=== PATIENT | female | born 1935 | race Caucasian/White ===

== ENCOUNTER 2018-07-25 13:19 | Inpatient (IN) | payer MEDICARE, OTHER ==
[2018-07-25 14:06] LABS: #Eosinphils 0.2 thou/uL (0.0-0.7); #Lymphocytes 0.9 thou/uL (1.20-3.40); #Monocytes 0.4 thou/uL (0.11-0.59); #Neutrophils 7.8 thou/uL (1.40-6.50); %Basophils 0.1 % (0.0-1.0); %Eosinophils 1.7 % (0.0-10.0); %Lymphocytes 9.2 % (21.0-51.0); %Monocytes 4.2 % (0.0-10.0); %Neutrophils 84.8 % (42.0-75.0); Hemoglobin 10.5 g/dL (12.0-16.0); Mean Corpuscular HGB CONC 31.1 g/dL (32.0-36.0); Mean Corpuscular Hemoglobin 28.4 pg (27.0-31.0); Mean Corpuscular Volume 91.3 fL (78.0-98.0); Mean Platelet Volume 7.5 fL (7.4-10.4); Platelet Count 283 thou/uL (130-400); RBC Distribution Width 14.1 % (11.5-14.5); White Blood Cell (WBC) Count 9.2 thou/uL (4.8-10.8)
[2018-07-25] MEDS ORDERED: HYDROcodone/Acetaminophen 5/325 mg Tablet ONE ×2 (14:22→17:46)
[2018-07-25 14:38] LABS: ALT (SGPT) 15 U/L (8-55); AST (SGOT) 15 U/L (5-34); Albumin 3.5 g/dL (3.4-4.8); Alkaline Phosphatase 68 U/L (40-150); Anion Gap 16 mmol/L (10-20); BUN (Urea Nitrogen) 22 mg/dL (9.8-20.1); Bilirubin, Total 0.2 mg/dL (0.2-1.2); Calc. Creatinine Clearance 0 mL/min (70-130); Calcium 9.5 mg/dL (7.8-10.44); Carbon Dioxide 23 mmol/L (23-31); Chloride 102 mmol/L (98-107); Estimated GFR-MDRD 48; Globulin 3.5 g/dL (2.4-3.5); Glucose 141 mg/dL (83-110); Potassium 4.5 mmol/L (3.5-5.1); Sodium 136 mmol/L (136-145)
--- NOTE | 2018-07-25 15:31 | ULT ---
RIGHT LOWER EXTREMITY VENOUS ULTRASOUND WITH DOPPLER: Date: 07/25/18 HISTORY: Evaluate for right lower extremity thrombus. Pain. COMPARISON: None. TECHNIQUE: Mohr scale, color flow, Doppler imaging, and spectral waveform analysis performed of the right lower extremity venous system. FINDINGS: There is compressibility, presence of flow in the common femoral vein and proximal femoral vein. Eval uation of the mid and distal femoral vein was limited. Flow was observed. Compressibility was not justin dent. The popliteal vein could not be assessed. There is compressibility and flow in the posterior ti bial vein. IMPRESSION: Limited evaluation due to body habitus. Nonvisualization of the popliteal vein. There is flow without compressibility of the mid to distal femoral vein. Possibility of a nonocclusive thrombus cannot be completely excluded. Clinical correlation is essential. POS: BUTCH
[2018-07-25] MEDS ORDERED: Ondansetron PF 4 MG/2 ML Vial IVP PRN ×2 (19:28→20:34)
[2018-07-25] MEDS ORDERED: Acetaminophen 325 MG TAB PO PRN ×2 (19:28→20:34)
[2018-07-25] MEDS ORDERED: Ondansetron ODT 4 MG TAB SL PRN (19:28)
[2018-07-25] MEDS ORDERED: Albuterol Sulfate 2.5 mg/3 ml Neb NEB PRN (20:34)
[2018-07-25] MEDS ORDERED: HYDROcodone/Acetaminophen 7.5/325 mg Tablet PO PRN (20:34)
[2018-07-25] MEDS ORDERED: Zolpidem Tartrate 5 MG TAB PO PRN (20:34)
[2018-07-25] MEDS ORDERED: Senokot S 8.6-50 MG TAB PO PRN (20:34)
[2018-07-25] MEDS ORDERED: Guaifenesin DM 100-10/5 ML UDCUP PO PRN (20:34)
[2018-07-25] MEDS ORDERED: Acetaminophen 650 MG Suppository PR PRN (20:34)
[2018-07-25] MEDS ORDERED: Dextrose 5% in Water 1,000 ML IV PRN (20:58)
[2018-07-25] MEDS ORDERED: Dextrose 50% Abboject 50 ML SYRINGE SLOW IVP PRN (20:58)
[2018-07-25] MEDS ORDERED: HumaLOG 300 UNITS/3 ML VIAL SC PRN ×2 (20:58)
[2018-07-25] MEDS ORDERED: Non-Formulary Item 1 EACH (Levemir Flexpen [Levemir Flexpen] 45 UNIT) SC SCH (21:00)
[2018-07-25] MEDS ORDERED: Famotidine 20 MG TAB PO SCH (21:00)
[2018-07-25] MEDS: Simvastatin 40 MG TAB PO SCH (21:50)
[2018-07-25] MEDS: Multivit, Therapeutic 1 TAB PO SCH (21:50)
[2018-07-25] MEDS: Furosemide 40 MG TAB PO SCH (21:50)
[2018-07-25] MEDS: HYDROcodone/Acetaminophen 7.5/325 mg Tablet PO PRN (21:50)
[2018-07-25] MEDS: Docusate 100 MG CAP PO SCH (21:50)
[2018-07-25] MEDS: Insulin Glargine 45 UNITS in Pre-Filled Syringe 1 EACH SC SCH (22:06)
--- NOTE | 2018-07-25 22:10 | HP ---
PRIMARY CARE PHYSICIAN: David Mathew MD CHIEF COMPLAINT: Right lower extremity pain. HISTORY OF PRESENT ILLNESS: This is an 82-year-old white female with a known history of severe lymphedema and previous cellulitis, last seen in May of this year at [facility] and admitted to the [facility], treated for edema and cellulitis with Lasix and Levaquin. The patient had improvement in her symptoms. She had apparently had a problem with her chair that elevates her feet at home for few days and so had her feet sitting down in a normal chair and has had felt like she had strained a muscle in her right upper thigh at that time. This was present during her whole hospitalization last time and when she went home, she says the pain has gotten worse and has been severe for the last week. Of note, the patient was transferred over to hospice care by her home health agency in May of this year. However, in the last week because she was still stable at her baseline, they transitioned her back to [facility] in the last week. The patient has had some chills, but no fevers. She has not noted if there has been any change in the chronic edematous changes of her lower extremities, but she cannot really see them well. In the emergency room, she was found to have redness around her ankle, feet, and in the distal part of her lower leg on the right side worse than the left. She was given a dose of vancomycin and admitted for cellulitis. PAST MEDICAL HISTORY: 1. Diabetes mellitus type 2, insulin dependent. 2. Chronic obstructive pulmonary disease on chronic home O2. 3. Undetermined type of congestive heart failure. 4. Obstructive sleep apnea, but has not worn her CPAP since she got home oxygen. 5. Hypothyroidism. 6. Hypertension. 7. Previous hemorrhoidal bleed. 8. Chronic lymphedema of the bilateral lower extremities with recurrent cellulitis. 9. Morbid obesity. PAST SURGICAL HISTORY: 1. Partial hysterectomy. 2. Bilateral cataract surgeries. 3. Left retina surgery. SOCIAL HISTORY: The patient is , lives with her who has dementia. She has previously been able to get around with a walker, though uncertain how much she is able to move recently. No tobacco, alcohol, or illicit drug use. FAMILY HISTORY: Unknown secondary to patient being adopted. ALLERGIES: 1. FISH CONTAINING PRODUCTS. 2. IODINATED CONTRAST, NEEDS PRETREATMENT BEFORE CARDIAC CATHETERIZATIONS. 3. LATEX. 4. PENICILLIN. 5. SHELLFISH. 6. SULFA ANTIBIOTICS. 7. TOMATOES. CURRENT MEDICATIONS: The patient is not certain of her home medications. Looking at her discharge list from her [facility] stay looks like she is on; 1. Levemir 52 units in the morning and 45 units at bedtime. 2. Aspirin 325 mg daily. 3. Zetia 10 mg daily. 4. Albuterol nebs as needed. 5. Furosemide 40 mg twice a day. 6. Potassium chloride 20 mEq daily. 7. Levothyroxine 100 mcg daily. 8. Cozaar 50 mg daily. 9. MiraLAX 1 pack daily. 10. Simvastatin 40 mg at bedtime. 11. Symbicort 160/4.5 two puffs twice a day. 12. Colace 100 mg twice a day. 13. Protonix 40 mg daily. REVIEW OF SYSTEMS: CONSTITUTIONAL: See HPI. EYES: No double vision or blurred vision. ENT: No congestion or sore throat. She has had some chronic nasal drainage. CARDIOVASCULAR: No chest pain. No palpitations or racing heart. She has had previous chest pain, but nothing recent. PULMONARY: She has chronic cough and shortness of breath, requiring home oxygen. This is not changed recently. GASTROINTESTINAL: No abdominal pain. She does have some nausea recently, but no vomiting. No diarrhea or constipation. No recent hemorrhoidal bleeds. Last time was in the hospital. GENITOURINARY: No dysuria or hematuria. MUSCULOSKELETAL: She has significant pain in the right anterior thigh. SKIN: See HPI. NEUROLOGIC: No numbness, tingling, or focal weakness. PHYSICAL EXAMINATION: VITAL SIGNS: Blood pressure 124/91, pulse 70, respirations 17, O2 saturation 99% on 3 L, and temperature 98.0. GENERAL: This is a well-developed, morbidly obese white female, in no acute distress. HEENT: Pupils equal, round, and reactive to light. Oropharynx clear without lesions, erythema, or exudate. NECK: Supple. No lymphadenopathy. No thyroid nodules or enlargement. HEART: Regular rate and rhythm. No murmurs, rubs, or gallops. LUNGS: Clear to auscultation bilaterally. No wheezes, crackles, or rhonchi. ABDOMEN: Soft, obese, nontender to palpation. Normoactive bowel sounds. No hepatosplenomegaly or other masses. EXTREMITIES: The patient has severe lymphedema to bilateral lower extremities with chronic thickening and lumpy changes to bilateral lower shins around her ankles and onto her feet with some lichenification of these areas. There is starting to be some redness in between the lichenified lumps on the ankles and on the feet, especially on the right lower extremity. There is actually some blistering. There are clear blisters without any evidence of purulence, but she does have some bright red areas in the midst of the lichenified area. There is no spreading cellulitis that is moving up the extremity and no rash over the anterior right thigh, where she is having the pain. She does have some tenderness to palpation in this area, but no masses. No warmth. Comparing the current lower extremity changes to what the pictures taken from May of this year at [facility], she has had significant worsening of the swelling and the bright red color is new. SKIN: See extremities above. NEUROLOGIC: The patient is able to move all extremities equally. She does have a left facial droop, which she states is from a sunstroke she had as a child and then she has always had less movement of the left side of her face. No recent changes. PSYCHIATRIC: Alert and oriented x3. Normal mood and affect. LABORATORY DATA: CBC with a white blood cell count 9.2, hemoglobin is 10.5, hematocrit 33.8, and platelet count 287. Complete metabolic panel is notable only for BUN of 22, glucose of 141. The rest was normal. Lactic acid was negative. Troponin was negative. Brain natriuretic peptide was normal. There was a vascular ultrasound done in the emergency room that showed no visualized clot in her right lower extremity deep veins. However, they were unable to compress the mid and distal femoral vein due to her obesity. There was limited ability to assess this. There was flow observed however in these portions of the vein, unable to completely rule out nonocclusive thrombus, but there was no obvious clot visualized. ASSESSMENT: 1. Bilateral lower extremity cellulitis, worse on the right than the left. We will continue vancomycin started in the emergency room at the pharmacy dose and we will observe for improvement in the redness of her lower extremities. 2. Right thigh pain. She is at high risk for deep venous thrombosis. However, she does also have a history of recurrently bleeding hemorrhoids and some anemia, and has had to have transfusions before by her report. I only would want to make certain if she has a deep venous thrombosis before actually starting her on full-dose therapy. We will go ahead and get D-dimer if this is negative along with nonvisualization of any obvious clot, then we can safely rule it out. If the D-dimer is positive, we may need to reassess with a repeat ultrasound. 3. Diabetes mellitus type 2, insulin dependent. We will resume patient's home insulin, put her on a controlled carbohydrate diet. 4. History of congestive heart failure with worsening lower extremity edema. I suspect the patient's edema is actually more lymphedema and poor venous return. Especially given her normal brain natriuretic peptide, however, I will get an echocardiogram and we will continue patient's oral Lasix for now. If she has any creatinine bumps, then we may need to decrease the Lasix treatment. If she has worsening of swelling and her creatinine is stable, she may need short course of IV therapy. 5. Gastrointestinal prophylaxis. Put patient on Protonix daily. 6. Deep venous thrombosis prophylaxis. We will put patient on prophylactic dose of Lovenox only right now. 7. Code status. I did discuss this with the patient. She is a do not attempt resuscitation. Should she be incapacitated, her son would be her medical decision maker, his name is Kenneth Zhou Junior. Job ID: [id number]
[2018-07-25 22:45] VITALS: BMI 74.2
[2018-07-25] MEDS: Ondansetron ODT 4 MG TAB PO PRN (23:23)
[2018-07-26] MEDS ORDERED: Gabapentin 300 MG CAP PO SCH (04:30)
[2018-07-26] MEDS ORDERED: Nystatin Powder 15 GM BOT TOP PRN (04:41)
[2018-07-26] MEDS: Vancomycin HCl 1 GM in Premix Bag 1 BAG IVPB SCH ×2 (04:44→16:32)
[2018-07-26] MEDS ORDERED: Nystatin Powder 15 GM BOT TOP SCH ×2 (04:45→09:00)
[2018-07-26] MEDS: Levothyroxine Sodium 100 MCG TAB PO SCH (05:27)
[2018-07-26] MEDS: HYDROcodone/Acetaminophen 7.5/325 mg Tablet PO PRN ×4 (07:03→21:41)
[2018-07-26] MEDS: Mometasone/Formoterol 120 PUFF INHALER INH SCH ×2 (07:13→18:23)
[2018-07-26] MEDS: Losartan 25 MG TAB PO SCH (08:59)
[2018-07-26] MEDS: Docusate 100 MG CAP PO SCH ×2 (08:59→20:50)
[2018-07-26] MEDS: Furosemide 40 MG TAB PO SCH ×2 (09:00→20:50)
[2018-07-26] MEDS: Potassium Chloride 20 MEQ TAB PO SCH ×2 (09:00→16:32)
[2018-07-26] MEDS: Ezetimibe 10 MG TAB PO SCH (09:00)
[2018-07-26] MEDS: Enoxaparin Sodium 40 MG/0.4 ML SYRINGE SC SCH (09:00)
[2018-07-26] MEDS ORDERED: INSULIN DETEMIR SC SCH (09:00)
[2018-07-26] MEDS ORDERED: Insulin Glargine 65 UNITS in Pre-Filled Syringe 1 EACH SC SCH (09:00)
[2018-07-26] MEDS: Aspirin 325 MG TAB PO SCH (09:00)
[2018-07-26] MEDS: Insulin Glargine 52 UNITS in Pre-Filled Syringe 1 EACH SC SCH (09:01)
[2018-07-26] MEDS: Polyethylene Glycol 3350 17 GM Packet PO SCH (09:05)
[2018-07-26 09:43] LABS: #Eosinphils 0.1 thou/uL (0.0-0.7); #Lymphocytes 0.4 thou/uL (1.20-3.40); #Monocytes 0.3 thou/uL (0.11-0.59); #Neutrophils 7.9 thou/uL (1.40-6.50); %Basophils 0.1 % (0.0-1.0); %Eosinophils 1.1 % (0.0-10.0); %Lymphocytes 4.1 % (21.0-51.0); %Monocytes 3.8 % (0.0-10.0); Hemoglobin 9.8 g/dL (12.0-16.0); Mean Corpuscular HGB CONC 31.2 g/dL (32.0-36.0); Mean Corpuscular Hemoglobin 28.5 pg (27.0-31.0); Mean Corpuscular Volume 91.4 fL (78.0-98.0); Mean Platelet Volume 7.7 fL (7.4-10.4); Platelet Count 286 thou/uL (130-400); Red Blood Cell (RBC) Count 3.42 mill/uL (4.20-5.40); White Blood Cell (WBC) Count 8.7 thou/uL (4.8-10.8)
[2018-07-26 09:58] LABS: Anion Gap 9 mmol/L (10-20); BUN (Urea Nitrogen) 18 mg/dL (9.8-20.1); Calc. Creatinine Clearance 149 mL/min (70-130); Calcium 9.3 mg/dL (7.8-10.44); Carbon Dioxide 34 mmol/L (23-31); Chloride 96 mmol/L (98-107); Estimated GFR-MDRD 60; Glucose 123 mg/dL (83-110); Potassium 4.3 mmol/L (3.5-5.1); Sodium 135 mmol/L (136-145)
--- NOTE | 2018-07-26 12:07 | PDOC.PN ---
- Subjective Encounter Start Date: 07/26/18 Encounter Start Time: 08:45 -: old records requested/rev Patient seen and examined. No new complaints. No overnight events - Objective Resuscitation Status - Order Detail: 07/25/18 20:27 Resuscitation Status Routine Resuscitation Status: DNAR: NO Resuscitation Discussed with: Patient RACHAEL Reviewed: Yes Vital Signs & Weight: Vital Signs (12 hours) Temp Pulse Resp BP Pulse Ox 07/26/18 11:33 97.7 F 64 16 140/65 99 07/26/18 08:00 95 07/26/18 07:13 88 22 H 99 07/26/18 07:00 97.6 F 68 18 165/73 H 95 Weight Weight 432 lb 3 oz Result Diagrams: 07/26/18 09:00 07/26/18 09:00 Additional Labs: Accuchecks 07/26/18 07/25/18 04:57 22:06 POC Glucose 126 H 132 H Phys Exam - Physical Examination Constitutional: NAD HEENT: PERRLA, moist MMs, sclera anicteric Neck: no JVD, supple Respiratory: no wheezing, no rales, no rhonchi Cardiovascular: RRR, no significant murmur, no rub Gastrointestinal: soft, non-tender, no distention, positive bowel sounds morbid obesity+ chronic lymphoedema Neurological: non-focal Lymphatic: no nodes Psychiatric: normal affect Skin: no rash, normal turgor Dx/Plan (1) Cellulitis of both lower extremities Code(s): L03.115 - CELLULITIS OF RIGHT LOWER LIMB; L03.116 - CELLULITIS OF LEFT LOWER LIMB Status: Acute (2) Anemia, normocytic normochromic Code(s): D64.9 - ANEMIA, UNSPECIFIED Status: Chronic (3) COPD (chronic obstructive pulmonary disease) Status: Chronic (4) Chronic respiratory failure with hypoxia, on home O2 therapy Code(s): J96.11 - CHRONIC RESPIRATORY FAILURE WITH HYPOXIA; Z99.81 - DEPENDENCE ON SUPPLEMENTAL OXYGEN Status: Chronic (5) Diabetes type 2, controlled Code(s): E11.9 - TYPE 2 DIABETES MELLITUS WITHOUT COMPLICATIONS Status: Chronic (6) Dyslipidemia Code(s): E78.5 - HYPERLIPIDEMIA, UNSPECIFIED Status: Chronic (7) GERD (gastroesophageal reflux disease) Code(s): K21.9 - GASTRO-ESOPHAGEAL REFLUX DISEASE WITHOUT ESOPHAGITIS Status: Chronic (8) HTN (hypertension) Code(s): I10 - ESSENTIAL (PRIMARY) HYPERTENSION Status: Chronic Qualifiers: (9) Hypothyroidism Code(s): E03.9 - HYPOTHYROIDISM, UNSPECIFIED Status: Chronic (10) Lymphedema Code(s): I89.0 - LYMPHEDEMA, NOT ELSEWHERE CLASSIFIED Status: Chronic (11) Morbid obesity with BMI of 70 and over, adult Code(s): E66.01 - MORBID (SEVERE) OBESITY DUE TO EXCESS CALORIES; Z68.45 - BODY MASS INDEX (BMI) 70 OR GREATER, ADULT Status: Chronic (12) MARISA (obstructive sleep apnea) Code(s): G47.33 - OBSTRUCTIVE SLEEP APNEA (ADULT) (PEDIATRIC) Status: Chronic - Plan cont current plan of care, continue antibiotics * medication reviewed as below * symptomatic treatment * continue current IV antibiotic * wound care * will need placement * discussed with family. Review of Systems - Review of Systems ENT: negative: Ear Pain, Ear Discharge, Nose Pain, Nose Discharge, Nose Congestion, Mouth Pain, Mouth Swelling, Throat Pain, Throat Swelling, Other Respiratory: negative: Cough, Dry, Shortness of Breath, Hemoptysis, SOB with Excertion, Pleuritic Pain, Sputum, Wheezing Cardiovascular: negative: chest pain, palpitations, orthopnea, paroxysmal nocturnal dyspnea, edema, light headedness, other Gastrointestinal: negative: Nausea, Vomiting, Abdominal Pain, Diarrhea, Constipation, Melena, Hematochezia, Other Genitourinary: negative: Dysuria, Frequency, Incontinence, Hematuria, Retention , Other Musculoskeletal: Leg Pain. negative: Neck Pain, Shoulder Pain, Arm Pain, Back Pain, Hand Pain, Foot Pain, Other - Medications/Allergies Allergies/Adverse Reactions: Allergies Allergy/AdvReac Type Severity Reaction Status Date / Time Fish Containing Products Allergy Severe Anaphylaxis Verified 07/25/18 22:47 iodine Allergy Severe Anaphylaxis Verified 07/25/18 22:47 shellfish derived Allergy Severe Anaphylaxis Verified 07/25/18 22:47 Latex, Natural Rubber Allergy Rash Verified 07/25/18 22:47 Penicillins Allergy Hives Verified 07/25/18 22:47 Sulfa (Sulfonamide Allergy Anaphylaxis Verified 07/25/18 22:47 Antibiotics) tomato [Tomato] Allergy Hives Verified 07/25/18 22:47 Medications: Current Medications Acetaminophen (Tylenol) 650 mg PO Q4H PRN PRN Reason: Headache/Fever/Mild Pain (1-3) Acetaminophen (Tylenol) 650 mg NC Q4H PRN PRN Reason: Headache/Fever/Mild Pain (1-3) Hydrocodone Bitart/Acetaminophen (Parlin 7.5/325) 1 tab PO Q4H PRN PRN Reason: Moderate Pain (4-6) Last Admin: 07/26/18 01:24 Dose: 1 tab Hydrocodone Bitart/Acetaminophen (Parlin 7.5/325) 2 tab PO Q4H PRN PRN Reason: Severe Pain (7-10) Last Admin: 07/26/18 07:03 Dose: 2 tab Albuterol Sulfate (Ventolin) 2.5 mg NEB Q6HR PRN PRN Reason: SOB &/or Wheezing Last Admin: 07/26/18 00:00 Dose: 2.5 mg Aspirin (Aspirin) 325 mg PO DAILY [facility] Last Admin: 07/26/18 09:00 Dose: 325 mg Dextrose/Water (Dextrose 50%) 25 gm SLOW IVP PRN PRN PRN Reason: Hypoglycemia Docusate Sodium (Colace) 100 mg PO BID [facility] Last Admin: 07/26/18 08:59 Dose: 100 mg Ezetimibe (Zetia) 10 mg PO DAILY [facility] Last Admin: 07/26/18 09:00 Dose: 10 mg Enoxaparin Sodium (Lovenox) 40 mg SC 0900 [facility] Last Admin: 07/26/18 09:00 Dose: 40 mg Furosemide (Lasix) 40 mg PO BID [facility] Last Admin: 07/26/18 09:00 Dose: 40 mg Glucagon (Glucagon) 1 mg IM PRN PRN PRN Reason: Hypoglycemia Guaifenesin/Dextromethorphan (Robitussin Dm) 15 ml PO Q4H PRN PRN Reason: Cough Vancomycin HCl 1 gm/ Device 200 mls @ 200 mls/hr IVPB 0400,1600 [facility] Last Admin: 07/26/18 04:44 Dose: 200 mls Insulin Glargine 45 units/ (Miscellaneous Medication) 0.45 mls @ 0 mls/hr SC HS [facility] Last Admin: 07/25/18 22:06 Dose: Not Given Insulin Glargine 52 units/ (Miscellaneous Medication) 0.52 mls @ 0 mls/hr SC QAM [facility] Last Admin: 07/26/18 09:01 Dose: 0.52 mls Dextrose/Water (D5w) 1,000 mls @ 0 mls/hr IV .Q0M PRN PRN Reason: Hypoglycemia Insulin Human Lispro (Humalog) 0 units SC .AGGRESSIVE SLIDING PRN PRN Reason: Aggressive Correctional Scale Insulin Human Lispro (Humalog) 0 units SC .BEDTIME SLIDING SC PRN PRN Reason: Bedtime Correctional Scale Levothyroxine Sodium (Synthroid) 100 mcg PO 0600 [facility] Last Admin: 07/26/18 05:27 Dose: 100 mcg Losartan Potassium (Cozaar) 50 mg PO DAILY [facility] Last Admin: 07/26/18 08:59 Dose: 50 mg Miscellaneous Medication (Pharmacy To Dose) 1 each IVPB ONE PRN PRN Reason: DOSING Stop: 08/24/18 20:54 Mometasone Furoate/Formoterol Fumar (Dulera 200 Mcg/5 Mcg Inhaler) 2 puff INH BID-RT [facility] Last Admin: 07/26/18 07:13 Dose: 2 puff Multivitamins (Theragran) 1 tab PO [facility] Last Admin: 07/25/18 21:50 Dose: 1 tab Nystatin (Mycostatin Powder) 0 gm TOP BID PRN PRN Reason: Rash/Topical Irritation Last Admin: 07/26/18 09:01 Dose: 1 applic Ondansetron HCl (Zofran Odt) 4 mg PO Q6H PRN PRN Reason: Nausea/Vomiting Last Admin: 07/25/18 23:23 Dose: 4 mg Ondansetron HCl (Zofran) 4 mg IVP Q6H PRN PRN Reason: Nausea/Vomiting Pantoprazole Sodium (Protonix) 40 mg PO 2100 [facility] Last Admin: 07/25/18 21:50 Dose: 40 mg Polyethylene Glycol (Miralax) 17 gm PO DAILY [facility] Last Admin: 07/26/18 09:05 Dose: 17 gm Potassium Chloride (K-Dur) 20 meq PO BID-WM [facility] Last Admin: 07/26/18 09:00 Dose: 20 meq Senna/Docusate Sodium (Senokot S) 2 tab PO BID PRN PRN Reason: Constipation Simvastatin (Zocor) 40 mg PO HS [facility] Last Admin: 07/25/18 21:50 Dose: 40 mg Zolpidem Tartrate (Ambien) 5 mg PO HS PRN PRN Reason: Insomnia Last Admin: 07/26/18 02:55 Dose: 5 mg
[2018-07-26] MEDS: Ondansetron ODT 4 MG TAB PO PRN (12:24)
[2018-07-26] MEDS ORDERED: Ketorolac Tromethamine 30 MG/ML VIAL IVP PRN (16:07)
[2018-07-26] MEDS: Insulin Glargine 45 UNITS in Pre-Filled Syringe 1 EACH SC SCH (20:50)
[2018-07-26] MEDS: Simvastatin 40 MG TAB PO SCH (20:51)
[2018-07-26] MEDS: Multivit, Therapeutic 1 TAB PO SCH (20:51)
[2018-07-27 05:21] LABS: Vancomycin, Trough 14.2 ug/mL
[2018-07-27] MEDS: Levothyroxine Sodium 100 MCG TAB PO SCH (05:46)
[2018-07-27] MEDS: Vancomycin HCl 1 GM in Premix Bag 1 BAG IVPB SCH ×3 (06:18→17:42)
[2018-07-27] MEDS: Mometasone/Formoterol 120 PUFF INHALER INH SCH ×2 (06:53→19:16)
[2018-07-27] MEDS: Enoxaparin Sodium 40 MG/0.4 ML SYRINGE SC SCH (09:05)
[2018-07-27] MEDS: Polyethylene Glycol 3350 17 GM Packet PO SCH (09:05)
[2018-07-27] MEDS: Potassium Chloride 20 MEQ TAB PO SCH ×2 (09:05→17:39)
[2018-07-27] MEDS: Losartan 25 MG TAB PO SCH (09:06)
[2018-07-27] MEDS: Docusate 100 MG CAP PO SCH ×2 (09:06→20:27)
[2018-07-27] MEDS: Ezetimibe 10 MG TAB PO SCH (09:06)
[2018-07-27] MEDS: Aspirin 325 MG TAB PO SCH (09:06)
[2018-07-27] MEDS: Insulin Glargine 52 UNITS in Pre-Filled Syringe 1 EACH SC SCH (09:06)
[2018-07-27] MEDS: Furosemide 40 MG TAB PO SCH ×2 (09:06→20:27)
[2018-07-27] MEDS: HYDROcodone/Acetaminophen 7.5/325 mg Tablet PO PRN ×3 (10:51→20:26)
--- NOTE | 2018-07-27 11:13 | PDOC.PN ---
- Subjective Encounter Start Date: 07/27/18 Encounter Start Time: 09:50 Patient seen and examined. No new complaints. No overnight events she has dyspnea - Objective Resuscitation Status - Order Detail: 07/25/18 20:27 Resuscitation Status Routine Resuscitation Status: DNAR: NO Resuscitation Discussed with: Patient RACHAEL Reviewed: Yes Vital Signs & Weight: Vital Signs (12 hours) Temp Pulse Resp BP Pulse Ox 07/27/18 08:00 99.2 F 76 20 141/69 H 100 07/27/18 06:54 98 07/27/18 06:53 78 16 98 Weight Weight 432 lb 3 oz I&O: 07/26/18 07/27/18 07/28/18 06:59 06:59 06:59 Intake Total 1710 Balance 1710 Result Diagrams: 07/26/18 09:00 07/26/18 09:00 Additional Labs: Accuchecks 07/27/18 07/26/18 07/26/18 04:45 19:53 16:20 POC Glucose 77 109 94 07/26/18 07/26/18 11:34 04:57 POC Glucose 134 H 126 H Phys Exam - Physical Examination Constitutional: NAD HEENT: PERRLA, moist MMs, sclera anicteric Neck: no JVD, supple Respiratory: no wheezing, no rales, no rhonchi distant sound Cardiovascular: RRR, no significant murmur, no rub Gastrointestinal: soft, non-tender, no distention, positive bowel sounds obesity lymphoedema+ Lymphatic: no nodes Psychiatric: normal affect Skin: no rash, normal turgor Dx/Plan (1) Cellulitis of both lower extremities Code(s): L03.115 - CELLULITIS OF RIGHT LOWER LIMB; L03.116 - CELLULITIS OF LEFT LOWER LIMB Status: Acute (2) Anemia, normocytic normochromic Code(s): D64.9 - ANEMIA, UNSPECIFIED Status: Chronic (3) COPD (chronic obstructive pulmonary disease) Status: Chronic (4) Chronic respiratory failure with hypoxia, on home O2 therapy Code(s): J96.11 - CHRONIC RESPIRATORY FAILURE WITH HYPOXIA; Z99.81 - DEPENDENCE ON SUPPLEMENTAL OXYGEN Status: Chronic (5) Diabetes type 2, controlled Code(s): E11.9 - TYPE 2 DIABETES MELLITUS WITHOUT COMPLICATIONS Status: Chronic (6) Dyslipidemia Code(s): E78.5 - HYPERLIPIDEMIA, UNSPECIFIED Status: Chronic (7) GERD (gastroesophageal reflux disease) Code(s): K21.9 - GASTRO-ESOPHAGEAL REFLUX DISEASE WITHOUT ESOPHAGITIS Status: Chronic (8) HTN (hypertension) Code(s): I10 - ESSENTIAL (PRIMARY) HYPERTENSION Status: Chronic Qualifiers: (9) Hypothyroidism Code(s): E03.9 - HYPOTHYROIDISM, UNSPECIFIED Status: Chronic (10) Lymphedema Code(s): I89.0 - LYMPHEDEMA, NOT ELSEWHERE CLASSIFIED Status: Chronic (11) Morbid obesity with BMI of 70 and over, adult Code(s): E66.01 - MORBID (SEVERE) OBESITY DUE TO EXCESS CALORIES; Z68.45 - BODY MASS INDEX (BMI) 70 OR GREATER, ADULT Status: Chronic (12) MARISA (obstructive sleep apnea) Code(s): G47.33 - OBSTRUCTIVE SLEEP APNEA (ADULT) (PEDIATRIC) Status: Chronic - Plan cont current plan of care, plan discussed w/ family, continue antibiotics, PT/OT , social media marketing manager, respiratory therapy * continue vancomycin * medication reviewed as below * symptomatic treatment * continue duoneb therapy. Review of Systems - Review of Systems ENT: negative: Ear Pain, Ear Discharge, Nose Pain, Nose Discharge, Nose Congestion, Mouth Pain, Mouth Swelling, Throat Pain, Throat Swelling, Other Respiratory: Shortness of Breath. negative: Cough, Dry, Hemoptysis, SOB with Excertion, Pleuritic Pain, Sputum, Wheezing Cardiovascular: negative: chest pain, palpitations, orthopnea, paroxysmal nocturnal dyspnea, edema, light headedness, other Gastrointestinal: negative: Nausea, Vomiting, Abdominal Pain, Diarrhea, Constipation, Melena, Hematochezia, Other Genitourinary: negative: Dysuria, Frequency, Incontinence, Hematuria, Retention , Other Musculoskeletal: negative: Neck Pain, Shoulder Pain, Arm Pain, Back Pain, Hand Pain, Leg Pain, Foot Pain, Other Skin: negative: Rash, Lesions, Addy, Bruising, Other - Medications/Allergies Allergies/Adverse Reactions: Allergies Allergy/AdvReac Type Severity Reaction Status Date / Time Fish Containing Products Allergy Severe Anaphylaxis Verified 07/25/18 22:47 iodine Allergy Severe Anaphylaxis Verified 07/25/18 22:47 shellfish derived Allergy Severe Anaphylaxis Verified 07/25/18 22:47 Latex, Natural Rubber Allergy Rash Verified 07/25/18 22:47 Penicillins Allergy Hives Verified 07/25/18 22:47 Sulfa (Sulfonamide Allergy Anaphylaxis Verified 07/25/18 22:47 Antibiotics) tomato [Tomato] Allergy Hives Verified 07/25/18 22:47 Medications: Current Medications Acetaminophen (Tylenol) 650 mg PO Q4H PRN PRN Reason: Headache/Fever/Mild Pain (1-3) Acetaminophen (Tylenol) 650 mg [place] Q4H PRN PRN Reason: Headache/Fever/Mild Pain (1-3) Hydrocodone Bitart/Acetaminophen ([place] 7.5/325) 1 tab PO Q4H PRN PRN Reason: Moderate Pain (4-6) Last Admin: 07/26/18 01:24 Dose: 1 tab Hydrocodone Bitart/Acetaminophen ([place] 7.5/325) 2 tab PO Q4H PRN PRN Reason: Severe Pain (7-10) Last Admin: 07/27/18 10:51 Dose: 2 tab Albuterol Sulfate (Ventolin) 2.5 mg NEB Q6HR PRN PRN Reason: SOB &/or Wheezing Last Admin: 07/26/18 00:00 Dose: 2.5 mg Aspirin (Aspirin) 325 mg PO DAILY [facility] Last Admin: 07/27/18 09:06 Dose: 325 mg Dextrose/Water (Dextrose 50%) 25 gm SLOW IVP PRN PRN PRN Reason: Hypoglycemia Docusate Sodium (Colace) 100 mg PO BID [facility] Last Admin: 07/27/18 09:06 Dose: 100 mg Ezetimibe (Zetia) 10 mg PO DAILY [facility] Last Admin: 07/27/18 09:06 Dose: 10 mg Enoxaparin Sodium (Lovenox) 40 mg SC 0900 [facility] Last Admin: 07/27/18 09:05 Dose: 40 mg Furosemide (Lasix) 40 mg PO BID [facility] Last Admin: 07/27/18 09:06 Dose: 40 mg Glucagon (Glucagon) 1 mg IM PRN PRN PRN Reason: Hypoglycemia Guaifenesin/Dextromethorphan (Robitussin Dm) 15 ml PO Q4H PRN PRN Reason: Cough Insulin Glargine 45 units/ (Miscellaneous Medication) 0.45 mls @ 0 mls/hr SC HS [facility] Last Admin: 07/26/18 20:50 Dose: Not Given Insulin Glargine 52 units/ (Miscellaneous Medication) 0.52 mls @ 0 mls/hr SC QAM [facility] Last Admin: 07/27/18 09:06 Dose: 0.52 mls Dextrose/Water (D5w) 1,000 mls @ 0 mls/hr IV .Q0M PRN PRN Reason: Hypoglycemia Vancomycin HCl 1 gm/ Device 200 mls @ 200 mls/hr IVPB 0600,1800 [facility] Last Admin: 07/27/18 06:18 Dose: 200 mls Insulin Human Lispro (Humalog) 0 units SC .AGGRESSIVE SLIDING PRN PRN Reason: Aggressive Correctional Scale Insulin Human Lispro (Humalog) 0 units SC .BEDTIME SLIDING SC PRN PRN Reason: Bedtime Correctional Scale Ketorolac Tromethamine (Toradol) 30 mg IVP Q6H PRN PRN Reason: Pain Stop: 07/31/18 16:08 Levothyroxine Sodium (Synthroid) 100 mcg PO 0600 [facility] Last Admin: 07/27/18 05:46 Dose: 100 mcg Losartan Potassium (Cozaar) 50 mg PO DAILY [facility] Last Admin: 07/27/18 09:06 Dose: 50 mg Miscellaneous Medication (Pharmacy To Dose) 1 each IVPB ONE PRN PRN Reason: DOSING Stop: 08/24/18 20:54 Mometasone Furoate/Formoterol Fumar (Dulera 200 Mcg/5 Mcg Inhaler) 2 puff INH BID-RT [facility] Last Admin: 07/27/18 06:53 Dose: 2 puff Multivitamins (Theragran) 1 tab PO HS [facility] Last Admin: 07/26/18 20:51 Dose: 1 tab Nystatin (Mycostatin Powder) 0 gm TOP BID PRN PRN Reason: Rash/Topical Irritation Last Admin: 07/26/18 09:01 Dose: 1 applic Ondansetron HCl (Zofran Odt) 4 mg PO Q6H PRN PRN Reason: Nausea/Vomiting Last Admin: 07/26/18 12:24 Dose: 4 mg Ondansetron HCl (Zofran) 4 mg IVP Q6H PRN PRN Reason: Nausea/Vomiting Pantoprazole Sodium (Protonix) 40 mg PO 2100 [facility] Last Admin: 07/26/18 20:51 Dose: 40 mg Polyethylene Glycol (Miralax) 17 gm PO DAILY [facility] Last Admin: 07/27/18 09:05 Dose: 17 gm Potassium Chloride (K-Dur) 20 meq PO BID-WM [facility] Last Admin: 07/27/18 09:05 Dose: 20 meq Senna/Docusate Sodium (Senokot S) 2 tab PO BID PRN PRN Reason: Constipation Simvastatin (Zocor) 40 mg PO HS [facility] Last Admin: 07/26/18 20:51 Dose: 40 mg Zolpidem Tartrate (Ambien) 5 mg PO HS PRN PRN Reason: Insomnia Last Admin: 07/26/18 02:55 Dose: 5 mg
[2018-07-27] MEDS: Multivit, Therapeutic 1 TAB PO SCH (20:27)
[2018-07-27] MEDS: Simvastatin 40 MG TAB PO SCH (20:27)
[2018-07-27] MEDS: Insulin Glargine 45 UNITS in Pre-Filled Syringe 1 EACH SC SCH (20:32)
[2018-07-28] MEDS: HYDROcodone/Acetaminophen 7.5/325 mg Tablet PO PRN ×2 (02:45→14:55)
[2018-07-28] MEDS: Vancomycin HCl 1 GM in Premix Bag 1 BAG IVPB SCH ×2 (06:12→18:08)
[2018-07-28] MEDS: Levothyroxine Sodium 100 MCG TAB PO SCH (06:12)
[2018-07-28] MEDS: Mometasone/Formoterol 120 PUFF INHALER INH SCH ×2 (06:26→18:45)
[2018-07-28] MEDS: Polyethylene Glycol 3350 17 GM Packet PO SCH (09:35)
[2018-07-28] MEDS: Aspirin 325 MG TAB PO SCH (09:35)
[2018-07-28] MEDS: Docusate 100 MG CAP PO SCH ×2 (09:35→22:21)
[2018-07-28] MEDS: Losartan 25 MG TAB PO SCH (09:35)
[2018-07-28] MEDS: Furosemide 40 MG TAB PO SCH ×2 (09:35→14:48)
[2018-07-28] MEDS: Ezetimibe 10 MG TAB PO SCH (09:35)
[2018-07-28] MEDS: Potassium Chloride 20 MEQ TAB PO SCH ×2 (09:35→18:07)
[2018-07-28] MEDS: Enoxaparin Sodium 40 MG/0.4 ML SYRINGE SC SCH (09:35)
[2018-07-28] MEDS: Insulin Glargine 52 UNITS in Pre-Filled Syringe 1 EACH SC SCH (09:36)
--- NOTE | 2018-07-28 10:06 | PDOC.PN ---
- Subjective Encounter Start Date: 07/28/18 Encounter Start Time: 09:10 Patient seen and examined. No new complaints. No overnight events - Objective Resuscitation Status - Order Detail: 07/25/18 20:27 Resuscitation Status Routine Resuscitation Status: DNAR: NO Resuscitation Discussed with: Patient RACHAEL Reviewed: Yes Vital Signs & Weight: Vital Signs (12 hours) Temp Pulse Resp BP Pulse Ox 07/28/18 07:41 97.5 F L 62 19 131/70 97 07/28/18 06:29 98 07/28/18 06:26 63 16 98 Weight Weight 432 lb 3 oz I&O: 07/27/18 07/28/18 07/29/18 06:59 06:59 06:59 Intake Total 1710 720 Balance 1710 720 Result Diagrams: 07/26/18 09:00 07/26/18 09:00 Additional Labs: Accuchecks 07/28/18 07/27/18 07/27/18 04:58 20:17 16:21 POC Glucose 118 H 129 H 139 H 07/27/18 11:15 POC Glucose 148 H Phys Exam - Physical Examination Constitutional: NAD HEENT: PERRLA, moist MMs, sclera anicteric Neck: no JVD, supple Respiratory: no wheezing, no rales, no rhonchi Cardiovascular: RRR, no significant murmur, no rub Gastrointestinal: soft, non-tender, no distention, positive bowel sounds lymphoedema Neurological: non-focal, normal sensation Lymphatic: no nodes Psychiatric: normal affect Skin: no rash, normal turgor Dx/Plan (1) Cellulitis of both lower extremities Code(s): L03.115 - CELLULITIS OF RIGHT LOWER LIMB; L03.116 - CELLULITIS OF LEFT LOWER LIMB Status: Acute (2) Anemia, normocytic normochromic Code(s): D64.9 - ANEMIA, UNSPECIFIED Status: Chronic (3) COPD (chronic obstructive pulmonary disease) Status: Chronic (4) Chronic respiratory failure with hypoxia, on home O2 therapy Code(s): J96.11 - CHRONIC RESPIRATORY FAILURE WITH HYPOXIA; Z99.81 - DEPENDENCE ON SUPPLEMENTAL OXYGEN Status: Chronic (5) Diabetes type 2, controlled Code(s): E11.9 - TYPE 2 DIABETES MELLITUS WITHOUT COMPLICATIONS Status: Chronic (6) Dyslipidemia Code(s): E78.5 - HYPERLIPIDEMIA, UNSPECIFIED Status: Chronic (7) GERD (gastroesophageal reflux disease) Code(s): K21.9 - GASTRO-ESOPHAGEAL REFLUX DISEASE WITHOUT ESOPHAGITIS Status: Chronic (8) HTN (hypertension) Code(s): I10 - ESSENTIAL (PRIMARY) HYPERTENSION Status: Chronic Qualifiers: (9) Hypothyroidism Code(s): E03.9 - HYPOTHYROIDISM, UNSPECIFIED Status: Chronic (10) Lymphedema Code(s): I89.0 - LYMPHEDEMA, NOT ELSEWHERE CLASSIFIED Status: Chronic (11) Morbid obesity with BMI of 70 and over, adult Code(s): E66.01 - MORBID (SEVERE) OBESITY DUE TO EXCESS CALORIES; Z68.45 - BODY MASS INDEX (BMI) 70 OR GREATER, ADULT Status: Chronic (12) MARISA (obstructive sleep apnea) Code(s): G47.33 - OBSTRUCTIVE SLEEP APNEA (ADULT) (PEDIATRIC) Status: Chronic - Plan cont current plan of care, plan discussed w/ family, continue antibiotics, PT/OT , social worker aide * medication reviewed as below * symptomatic treatment * continue empiric antibiotics * wound care * await placement. Review of Systems - Review of Systems ENT: negative: Ear Pain, Ear Discharge, Nose Pain, Nose Discharge, Nose Congestion, Mouth Pain, Mouth Swelling, Throat Pain, Throat Swelling, Other Respiratory: negative: Cough, Dry, Shortness of Breath, Hemoptysis, SOB with Excertion, Pleuritic Pain, Sputum, Wheezing Cardiovascular: negative: chest pain, palpitations, orthopnea, paroxysmal nocturnal dyspnea, edema, light headedness, other Gastrointestinal: negative: Nausea, Vomiting, Abdominal Pain, Diarrhea, Constipation, Melena, Hematochezia, Other Genitourinary: negative: Dysuria, Frequency, Incontinence, Hematuria, Retention , Other - Medications/Allergies Allergies/Adverse Reactions: Allergies Allergy/AdvReac Type Severity Reaction Status Date / Time Fish Containing Products Allergy Severe Anaphylaxis Verified 07/25/18 22:47 iodine Allergy Severe Anaphylaxis Verified 07/25/18 22:47 shellfish derived Allergy Severe Anaphylaxis Verified 07/25/18 22:47 Latex, Natural Rubber Allergy Rash Verified 07/25/18 22:47 Penicillins Allergy Hives Verified 07/25/18 22:47 Sulfa (Sulfonamide Allergy Anaphylaxis Verified 07/25/18 22:47 Antibiotics) tomato [Tomato] Allergy Hives Verified 07/25/18 22:47 Medications: Current Medications Acetaminophen (Tylenol) 650 mg PO Q4H PRN PRN Reason: Headache/Fever/Mild Pain (1-3) Acetaminophen (Tylenol) 650 mg [place] Q4H PRN PRN Reason: Headache/Fever/Mild Pain (1-3) Hydrocodone Bitart/Acetaminophen ([place] 7.5/325) 1 tab PO Q4H PRN PRN Reason: Moderate Pain (4-6) Last Admin: 07/26/18 01:24 Dose: 1 tab Hydrocodone Bitart/Acetaminophen ([place] 7.5/325) 2 tab PO Q4H PRN PRN Reason: Severe Pain (7-10) Last Admin: 07/28/18 02:45 Dose: 2 tab Albuterol Sulfate (Ventolin) 2.5 mg NEB Q6HR PRN PRN Reason: SOB &/or Wheezing Last Admin: 07/26/18 00:00 Dose: 2.5 mg Aspirin (Aspirin) 325 mg PO DAILY [facility] Last Admin: 07/28/18 09:35 Dose: 325 mg Dextrose/Water (Dextrose 50%) 25 gm SLOW IVP PRN PRN PRN Reason: Hypoglycemia Docusate Sodium (Colace) 100 mg PO BID [facility] Last Admin: 07/28/18 09:35 Dose: 100 mg Ezetimibe (Zetia) 10 mg PO DAILY [facility] Last Admin: 07/28/18 09:35 Dose: 10 mg Enoxaparin Sodium (Lovenox) 40 mg SC 0900 [facility] Last Admin: 07/28/18 09:35 Dose: 40 mg Furosemide (Lasix) 40 mg PO 0900,1400 [facility] Last Admin: 07/28/18 09:35 Dose: 40 mg Glucagon (Glucagon) 1 mg IM PRN PRN PRN Reason: Hypoglycemia Guaifenesin/Dextromethorphan (Robitussin Dm) 15 ml PO Q4H PRN PRN Reason: Cough Insulin Glargine 45 units/ (Miscellaneous Medication) 0.45 mls @ 0 mls/hr SC HS [facility] Last Admin: 07/27/18 20:32 Dose: 0.45 mls Insulin Glargine 52 units/ (Miscellaneous Medication) 0.52 mls @ 0 mls/hr SC QAM [facility] Last Admin: 07/28/18 09:36 Dose: 0.52 mls Dextrose/Water (D5w) 1,000 mls @ 0 mls/hr IV .Q0M PRN PRN Reason: Hypoglycemia Vancomycin HCl 1 gm/ Device 200 mls @ 200 mls/hr IVPB 0600,1800 [facility] Last Admin: 07/28/18 06:12 Dose: 200 mls Insulin Human Lispro (Humalog) 0 units SC .AGGRESSIVE SLIDING PRN PRN Reason: Aggressive Correctional Scale Insulin Human Lispro (Humalog) 0 units SC .BEDTIME SLIDING SC PRN PRN Reason: Bedtime Correctional Scale Ketorolac Tromethamine (Toradol) 30 mg IVP Q6H PRN PRN Reason: Pain Stop: 07/31/18 16:08 Levothyroxine Sodium (Synthroid) 100 mcg PO 0600 [facility] Last Admin: 07/28/18 06:12 Dose: 100 mcg Losartan Potassium (Cozaar) 50 mg PO DAILY [facility] Last Admin: 07/28/18 09:35 Dose: 50 mg Miscellaneous Medication (Pharmacy To Dose) 1 each IVPB ONE PRN PRN Reason: DOSING Stop: 08/24/18 20:54 Mometasone Furoate/Formoterol Fumar (Dulera 200 Mcg/5 Mcg Inhaler) 2 puff INH BID-RT [facility] Last Admin: 07/28/18 06:26 Dose: 2 puff Multivitamins (Theragran) 1 tab PO HS [facility] Last Admin: 07/27/18 20:27 Dose: 1 tab Nystatin (Mycostatin Powder) 0 gm TOP BID PRN PRN Reason: Rash/Topical Irritation Last Admin: 07/26/18 09:01 Dose: 1 applic Ondansetron HCl (Zofran Odt) 4 mg PO Q6H PRN PRN Reason: Nausea/Vomiting Last Admin: 07/26/18 12:24 Dose: 4 mg Ondansetron HCl (Zofran) 4 mg IVP Q6H PRN PRN Reason: Nausea/Vomiting Pantoprazole Sodium (Protonix) 40 mg PO 2100 [facility] Last Admin: 07/27/18 20:27 Dose: 40 mg Polyethylene Glycol (Miralax) 17 gm PO DAILY [facility] Last Admin: 07/28/18 09:35 Dose: 17 gm Potassium Chloride (K-Dur) 20 meq PO BID-WM [facility] Last Admin: 07/28/18 09:35 Dose: 20 meq Senna/Docusate Sodium (Senokot S) 2 tab PO BID PRN PRN Reason: Constipation Simvastatin (Zocor) 40 mg PO HS [facility] Last Admin: 07/27/18 20:27 Dose: 40 mg Zolpidem Tartrate (Ambien) 5 mg PO HS PRN PRN Reason: Insomnia Last Admin: 07/26/18 02:55 Dose: 5 mg
[2018-07-28 17:36] LABS: Vancomycin, Trough 19.5 ug/mL
[2018-07-28] MEDS: Insulin Glargine 45 UNITS in Pre-Filled Syringe 1 EACH SC SCH (22:17)
[2018-07-28] MEDS: Simvastatin 40 MG TAB PO SCH (22:21)
[2018-07-28] MEDS: Multivit, Therapeutic 1 TAB PO SCH (22:21)
[2018-07-29] MEDS: Vancomycin HCl 1 GM in Premix Bag 1 BAG IVPB SCH ×2 (06:30→18:07)
[2018-07-29] MEDS: Levothyroxine Sodium 100 MCG TAB PO SCH (06:30)
[2018-07-29] MEDS: Mometasone/Formoterol 120 PUFF INHALER INH SCH ×2 (06:54→18:50)
[2018-07-29] MEDS: HYDROcodone/Acetaminophen 7.5/325 mg Tablet PO PRN (06:57)
[2018-07-29] MEDS: Potassium Chloride 20 MEQ TAB PO SCH ×2 (09:44→18:07)
[2018-07-29] MEDS: Furosemide 40 MG TAB PO SCH ×2 (09:44→15:42)
[2018-07-29] MEDS: Insulin Glargine 52 UNITS in Pre-Filled Syringe 1 EACH SC SCH (09:44)
[2018-07-29] MEDS: Polyethylene Glycol 3350 17 GM Packet PO SCH (09:44)
[2018-07-29] MEDS: Ezetimibe 10 MG TAB PO SCH (09:44)
[2018-07-29] MEDS: Aspirin 325 MG TAB PO SCH (09:44)
[2018-07-29] MEDS: Docusate 100 MG CAP PO SCH (09:44)
[2018-07-29] MEDS: Enoxaparin Sodium 40 MG/0.4 ML SYRINGE SC SCH (09:45)
[2018-07-29] MEDS: Losartan 25 MG TAB PO SCH (09:48)
--- NOTE | 2018-07-29 10:22 | PDOC.PN ---
- Subjective Encounter Start Date: 07/29/18 Encounter Start Time: 09:10 Patient seen and examined. No new complaints. No overnight events - Objective Resuscitation Status - Order Detail: 07/25/18 20:27 Resuscitation Status Routine Resuscitation Status: DNAR: NO Resuscitation Discussed with: Patient RACHAEL Reviewed: Yes Vital Signs & Weight: Vital Signs (12 hours) Temp Pulse Resp BP Pulse Ox 07/29/18 07:15 97.8 F 66 16 146/68 H 96 07/29/18 06:56 93 L 07/29/18 06:54 82 16 93 L Weight Weight 432 lb 3 oz I&O: 07/28/18 07/29/18 07/30/18 06:59 06:59 06:59 Intake Total 720 600 Balance 720 600 Result Diagrams: 07/26/18 09:00 07/26/18 09:00 Additional Labs: Accuchecks 07/29/18 07/28/18 07/28/18 04:47 20:25 16:18 POC Glucose 87 140 H 116 H 07/28/18 11:32 POC Glucose 148 H Phys Exam - Physical Examination Constitutional: NAD HEENT: PERRLA, moist MMs, sclera anicteric Neck: no JVD, supple Respiratory: no wheezing, no rales, no rhonchi Cardiovascular: RRR, no significant murmur, no rub Gastrointestinal: soft, non-tender, no distention, positive bowel sounds Musculoskeletal: no edema, pulses present Neurological: non-focal, normal sensation, moves all 4 limbs Lymphatic: no nodes Psychiatric: normal affect, A&O x 3 Skin: no rash, normal turgor Dx/Plan (1) Cellulitis of both lower extremities Code(s): L03.115 - CELLULITIS OF RIGHT LOWER LIMB; L03.116 - CELLULITIS OF LEFT LOWER LIMB Status: Acute (2) Anemia, normocytic normochromic Code(s): D64.9 - ANEMIA, UNSPECIFIED Status: Chronic (3) COPD (chronic obstructive pulmonary disease) Status: Chronic (4) Chronic respiratory failure with hypoxia, on home O2 therapy Code(s): J96.11 - CHRONIC RESPIRATORY FAILURE WITH HYPOXIA; Z99.81 - DEPENDENCE ON SUPPLEMENTAL OXYGEN Status: Chronic (5) Diabetes type 2, controlled Code(s): E11.9 - TYPE 2 DIABETES MELLITUS WITHOUT COMPLICATIONS Status: Chronic (6) Dyslipidemia Code(s): E78.5 - HYPERLIPIDEMIA, UNSPECIFIED Status: Chronic (7) GERD (gastroesophageal reflux disease) Code(s): K21.9 - GASTRO-ESOPHAGEAL REFLUX DISEASE WITHOUT ESOPHAGITIS Status: Chronic (8) HTN (hypertension) Code(s): I10 - ESSENTIAL (PRIMARY) HYPERTENSION Status: Chronic Qualifiers: (9) Hypothyroidism Code(s): E03.9 - HYPOTHYROIDISM, UNSPECIFIED Status: Chronic (10) Lymphedema Code(s): I89.0 - LYMPHEDEMA, NOT ELSEWHERE CLASSIFIED Status: Chronic (11) Morbid obesity with BMI of 70 and over, adult Code(s): E66.01 - MORBID (SEVERE) OBESITY DUE TO EXCESS CALORIES; Z68.45 - BODY MASS INDEX (BMI) 70 OR GREATER, ADULT Status: Chronic (12) MARISA (obstructive sleep apnea) Code(s): G47.33 - OBSTRUCTIVE SLEEP APNEA (ADULT) (PEDIATRIC) Status: Chronic - Plan cont current plan of care, continue antibiotics, PT/OT, social services analyst * medication reviewed as below * symptomatic treatment * continue IV antibiotics * await placement. Review of Systems - Review of Systems ENT: negative: Ear Pain, Ear Discharge, Nose Pain, Nose Discharge, Nose Congestion, Mouth Pain, Mouth Swelling, Throat Pain, Throat Swelling, Other Respiratory: negative: Cough, Dry, Shortness of Breath, Hemoptysis, SOB with Excertion, Pleuritic Pain, Sputum, Wheezing Cardiovascular: negative: chest pain, palpitations, orthopnea, paroxysmal nocturnal dyspnea, edema, light headedness, other Gastrointestinal: negative: Nausea, Vomiting, Abdominal Pain, Diarrhea, Constipation, Melena, Hematochezia, Other Genitourinary: negative: Dysuria, Frequency, Incontinence, Hematuria, Retention , Other Musculoskeletal: negative: Neck Pain, Shoulder Pain, Arm Pain, Back Pain, Hand Pain, Leg Pain, Foot Pain, Other Skin: negative: Rash, Lesions, Addy, Bruising, Other - Medications/Allergies Allergies/Adverse Reactions: Allergies Allergy/AdvReac Type Severity Reaction Status Date / Time Fish Containing Products Allergy Severe Anaphylaxis Verified 07/25/18 22:47 iodine Allergy Severe Anaphylaxis Verified 07/25/18 22:47 shellfish derived Allergy Severe Anaphylaxis Verified 07/25/18 22:47 Latex, Natural Rubber Allergy Rash Verified 07/25/18 22:47 Penicillins Allergy Hives Verified 07/25/18 22:47 Sulfa (Sulfonamide Allergy Anaphylaxis Verified 07/25/18 22:47 Antibiotics) tomato [Tomato] Allergy Hives Verified 07/25/18 22:47 Medications: Current Medications Acetaminophen (Tylenol) 650 mg PO Q4H PRN PRN Reason: Headache/Fever/Mild Pain (1-3) Acetaminophen (Tylenol) 650 mg [place] Q4H PRN PRN Reason: Headache/Fever/Mild Pain (1-3) Hydrocodone Bitart/Acetaminophen ([place] 7.5/325) 1 tab PO Q4H PRN PRN Reason: Moderate Pain (4-6) Last Admin: 07/26/18 01:24 Dose: 1 tab Hydrocodone Bitart/Acetaminophen ([place] 7.5/325) 2 tab PO Q4H PRN PRN Reason: Severe Pain (7-10) Last Admin: 07/29/18 06:57 Dose: 2 tab Albuterol Sulfate (Ventolin) 2.5 mg NEB Q6HR PRN PRN Reason: SOB &/or Wheezing Last Admin: 07/26/18 00:00 Dose: 2.5 mg Aspirin (Aspirin) 325 mg PO DAILY [facility] Last Admin: 07/29/18 09:44 Dose: 325 mg Dextrose/Water (Dextrose 50%) 25 gm SLOW IVP PRN PRN PRN Reason: Hypoglycemia Docusate Sodium (Colace) 100 mg PO BID [facility] Last Admin: 07/29/18 09:44 Dose: 100 mg Ezetimibe (Zetia) 10 mg PO DAILY [facility] Last Admin: 07/29/18 09:44 Dose: 10 mg Enoxaparin Sodium (Lovenox) 40 mg SC 0900 [facility] Last Admin: 07/29/18 09:45 Dose: 40 mg Furosemide (Lasix) 40 mg PO 0900,1400 [facility] Last Admin: 07/29/18 09:44 Dose: 40 mg Glucagon (Glucagon) 1 mg IM PRN PRN PRN Reason: Hypoglycemia Guaifenesin/Dextromethorphan (Robitussin Dm) 15 ml PO Q4H PRN PRN Reason: Cough Insulin Glargine 45 units/ (Miscellaneous Medication) 0.45 mls @ 0 mls/hr SC HS [facility] Last Admin: 07/28/18 22:17 Dose: 0.45 mls Insulin Glargine 52 units/ (Miscellaneous Medication) 0.52 mls @ 0 mls/hr SC QAM [facility] Last Admin: 07/29/18 09:44 Dose: 0.52 mls Dextrose/Water (D5w) 1,000 mls @ 0 mls/hr IV .Q0M PRN PRN Reason: Hypoglycemia Vancomycin HCl 1 gm/ Device 200 mls @ 200 mls/hr IVPB 0600,1800 [facility] Last Admin: 07/29/18 06:30 Dose: 200 mls Insulin Human Lispro (Humalog) 0 units SC .AGGRESSIVE SLIDING PRN PRN Reason: Aggressive Correctional Scale Insulin Human Lispro (Humalog) 0 units SC .BEDTIME SLIDING SC PRN PRN Reason: Bedtime Correctional Scale Ketorolac Tromethamine (Toradol) 30 mg IVP Q6H PRN PRN Reason: Pain Stop: 07/31/18 16:08 Levothyroxine Sodium (Synthroid) 100 mcg PO 0600 [facility] Last Admin: 07/29/18 06:30 Dose: 100 mcg Losartan Potassium (Cozaar) 50 mg PO DAILY [facility] Last Admin: 07/29/18 09:48 Dose: 50 mg Miscellaneous Medication (Pharmacy To Dose) 1 each IVPB ONE PRN PRN Reason: DOSING Stop: 08/24/18 20:54 Mometasone Furoate/Formoterol Fumar (Dulera 200 Mcg/5 Mcg Inhaler) 2 puff INH BID-RT [facility] Last Admin: 07/29/18 06:54 Dose: 2 puff Multivitamins (Theragran) 1 tab PO HS [facility] Last Admin: 07/28/18 22:21 Dose: 1 tab Nystatin (Mycostatin Powder) 0 gm TOP BID PRN PRN Reason: Rash/Topical Irritation Last Admin: 07/26/18 09:01 Dose: 1 applic Ondansetron HCl (Zofran Odt) 4 mg PO Q6H PRN PRN Reason: Nausea/Vomiting Last Admin: 07/26/18 12:24 Dose: 4 mg Ondansetron HCl (Zofran) 4 mg IVP Q6H PRN PRN Reason: Nausea/Vomiting Pantoprazole Sodium (Protonix) 40 mg PO 2100 [facility] Last Admin: 07/28/18 22:20 Dose: 40 mg Polyethylene Glycol (Miralax) 17 gm PO DAILY [facility] Last Admin: 07/29/18 09:44 Dose: 17 gm Potassium Chloride (K-Dur) 20 meq PO BID-WM [facility] Last Admin: 07/29/18 09:44 Dose: 20 meq Senna/Docusate Sodium (Senokot S) 2 tab PO BID PRN PRN Reason: Constipation Simvastatin (Zocor) 40 mg PO HS [facility] Last Admin: 07/28/18 22:21 Dose: 40 mg Zolpidem Tartrate (Ambien) 5 mg PO HS PRN PRN Reason: Insomnia Last Admin: 07/26/18 02:55 Dose: 5 mg
--- NOTE | 2018-07-29 15:31 | DIS ---
DATE OF ADMISSION: 07/25/2018 DATE OF DISCHARGE: 07/29/2018 PRIMARY CARE PHYSICIAN: David Mathew MD DISCHARGE DISPOSITION: [facility]. PRIMARY DISCHARGE DIAGNOSIS: Bilateral lower extremity cellulitis. SECONDARY DISCHARGE DIAGNOSES: 1. Morbid obesity with BMI 74. 2. Obstructive sleep apnea. 3. Lymphoedema. 4. Hypothyroidism. 5. Hypertension. 6. Gastroesophageal reflux disease. 7. Dyslipidemia. 8. Diabetes type 2. 9. Chronic obstructive pulmonary disease. 10. Chronic respiratory failure, on home oxygen therapy. 11. Normocytic-normochromic anemia. PRIMARY PROCEDURE/OPERATION: None. RADIOLOGICAL INVESTIGATION: Ultrasound negative for DVT. Echocardiography showed normal EF. SIGNIFICANT LABORATORY DATA: WBC 8.7, hemoglobin 9.8, platelets 286. D-dimer 0.87. Sodium 135, potassium 4.3, creatinine 0.90, calcium 9.3. CRP negative. BNP normal. Cardiac enzyme negative. Blood culture negative. DISCHARGE MEDICATION: 1. Lorazepam 0.5 mg p.o. q.4 hourly p.r.n. 2. Prochlorperazine 10 mg q.6 hourly p.r.n. 3. Robinul 1 mg p.o. q.8 hourly p.r.n. 4. Tylenol 650 mg q.4 hourly p.r.n. 5. Betamethasone topical application daily. 6. symbicort two puff inhalation b.i.d. 7. Colace 250 mg p.o. daily. 8. Lasix 80 mg daily. 9. Ketoconazole topical daily. 10. Levemir 45 units at bedtime, Levemir 52 units in the morning. 11. Lovastatin 10 mg at bedtime. 12. Prednisone 10 mg daily. 13. Ventolin inhaler q.6 hourly. 14. Cipro 500 mg p.o. b.i.d. 15. Doxycycline 100 mg b.i.d. 16. Aspirin 325 mg daily. 17. Synthroid 100 mcg p.o. daily. 18. Losartan 50 mg p.o. daily. 19. Multivitamin one tablet p.o. daily. 20. Florastor 250 mg daily. 21. Potassium chloride 20 mEq p.o. b.i.d. CONTRAINDICATION: None. CODE STATUS: DNR. INPATIENT CONSULTANTS: None. ALLERGIES: FISH, IODINE, SHELLFISH. DISCHARGE PLAN: Posthospital, the patient will follow up with primary care physician. HOSPITAL COURSE: An 82-year-old female with above-mentioned medical problem, who was admitted by Dr. Jalen Inman, please see his H and P for further details. This patient has morbid obesity, chronic venous insufficiency with venous lymphedema. The patient was having increasing erythema, swelling, tenderness over lower extremity, more on the right side and that is why patient was admitted to the hospital. She had ultrasound which was negative for DVT. Echocardiography was unremarkable. While in the hospital, she was treated with vancomycin. On discharge, we changed to Cipro and doxy. The patient home medication was continued while in the hospital. She remained hemodynamically stable. She has physical deconditioning and that is why the patient and family member requested to place her to long-term home. With the help of counter caser, we arranged long-term home. The patient has approval for long-term home from insurance perspective as well as a facility perspective. The patient is seen and examined at bedside today. Please see my progress note from today for further detail. Paperwork for discharge done and discharge medication reconciliation done. Total time spent on discharge day, 31 minutes. Job ID: [id number] MTDD
[2018-07-29 18:05] VITALS: BP 161/70; TEMP 98.2
--- NOTE | 2018-07-30 17:44 | EKG ---
Test Reason : Blood Pressure : / mmHG Vent. Rate : 060 BPM Atrial Rate : 060 BPM P-R Int : 152 ms QRS Dur : 086 ms QT Int : 454 ms P-R-T Axes : 085 030 042 degrees QTc Int : 454 ms Normal sinus rhythm Normal ECG Confirmed by CLARE VALENTIN [id number]), staff editor AMERICA ARMENTA ([id number]) on 07/30/2018 5:43:45 PM Referred By: Confirmed By:CLARE VALENTIN
== END 2018-07-29 19:30 | disposition swing bed (61) | DRG 603 ==
LOC: ERS 13:19 → T4-B 16:01
PROVIDERS: ADMIT Emergency Medicine; ATTEND Emergency Medicine
DX: L03.116 Cellulitis of left lower limb (principal); Z68.45 Body mass index [BMI] 70 or greater, adult; J96.11 Chronic respiratory failure with hypoxia; L03.115 Cellulitis of right lower limb; E66.01 Morbid (severe) obesity due to excess calories; E03.9 Hypothyroidism, unspecified; K21.9 Gastro-esophageal reflux disease without esophagitis; E78.5 Hyperlipidemia, unspecified; E11.9 Type 2 diabetes mellitus without complications; J44.9 Chronic obstructive pulmonary disease, unspecified; D64.9 Anemia, unspecified; I11.0 Hypertensive heart disease with heart failure; G47.33 Obstructive sleep apnea (adult) (pediatric); I50.9 Heart failure, unspecified; Z91.018 Allergy to other foods; Z91.041 Radiographic dye allergy status; Z99.81 Dependence on supplemental oxygen; Z91.013 Allergy to seafood; Z88.0 Allergy status to penicillin; Z88.2 Allergy status to sulfonamides; Z91.040 Latex allergy status; Z79.4 Long term (current) use of insulin; Z79.82 Long term (current) use of aspirin; Z79.899 Other long term (current) drug therapy; Z79.51 Long term (current) use of inhaled steroids
CPT/HCPCS: 36415; 36416; 80048; 80053; 80202; 83605; 83880; 84484; 85025; 85379; 87040; 90471; 90662; 93005; 93306; 94640; A4353; G0008; J1650; J1825; J3370; J7611; Q0162

== ENCOUNTER 2018-11-13 12:00 | Observation (INO) | payer MEDICARE, OTHER ==
[2018-11-13] MEDS ORDERED: Vancomycin HCl 1.5 GM in Sodium Chloride 0.9% 250 ML 300 ML IVPB SCH (12:45)
[2018-11-13 12:50] LABS: #Eosinphils 0.1 thou/uL (0.0-0.7); #Lymphocytes 0.8 thou/uL (1.20-3.40); #Monocytes 0.3 thou/uL (0.11-0.59); #Neutrophils 6.4 thou/uL (1.40-6.50); %Basophils 0.2 % (0.0-1.0); %Eosinophils 1.5 % (0.0-10.0); %Lymphocytes 10.6 % (21.0-51.0); %Neutrophils 83.7 % (42.0-75.0); Hemoglobin 12.5 g/dL (12.0-16.0); Mean Corpuscular HGB CONC 31.7 g/dL (32.0-36.0); Mean Corpuscular Hemoglobin 29.7 pg (27.0-31.0); Mean Corpuscular Volume 93.6 fL (78.0-98.0); Mean Platelet Volume 7.9 fL (7.4-10.4); Platelet Count 276 thou/uL (130-400); RBC Distribution Width 15.3 % (11.5-14.5); White Blood Cell (WBC) Count 7.6 thou/uL (4.8-10.8)
[2018-11-13 13:11] LABS: ALT (SGPT) 79 U/L (8-55); AST (SGOT) 114 U/L (5-34); Albumin 3.8 g/dL (3.4-4.8); Alkaline Phosphatase 103 U/L (40-150); Anion Gap 11 mmol/L (10-20); BUN (Urea Nitrogen) 9 mg/dL (9.8-20.1); Bilirubin, Total 0.5 mg/dL (0.2-1.2); Calc. Creatinine Clearance 0 mL/min (70-130); Carbon Dioxide 37 mmol/L (23-31); Chloride 95 mmol/L (98-107); Estimated GFR-MDRD 64; Globulin 3.5 g/dL (2.4-3.5); Glucose 205 mg/dL (83-110); Protein, Total 7.3 g/dL (6.0-8.3); Sodium 139 mmol/L (136-145)
[2018-11-13] MEDS ORDERED: Ondansetron ODT 4 MG TAB ONE ×2 (16:40→16:45)
[2018-11-13] MEDS ORDERED: Acetaminophen 650 MG Suppository PR PRN (19:17)
[2018-11-13] MEDS ORDERED: Ondansetron PF 4 MG/2 ML Vial IVP PRN (19:17)
[2018-11-13] MEDS ORDERED: Ondansetron ODT 4 MG TAB PO PRN (19:17)
[2018-11-13] MEDS ORDERED: Acetaminophen 325 MG TAB PO PRN (19:17)
[2018-11-13] MEDS ORDERED: Dextrose 5% in Water 1,000 ML IV PRN (19:21)
[2018-11-13] MEDS ORDERED: Dextrose 50% Abboject 50 ML SYRINGE SLOW IVP PRN (19:21)
[2018-11-13] MEDS ORDERED: HumaLOG 300 UNITS/3 ML VIAL SC PRN (19:21)
[2018-11-13] MEDS ORDERED: Lorazepam 0.5 MG TAB PO PRN (19:46)
[2018-11-13] MEDS ORDERED: Bisacodyl 10 MG SUPP PR PRN (19:46)
[2018-11-13] MEDS ORDERED: traMADol HCl 50 MG TAB PO PRN (19:52)
--- NOTE | 2018-11-13 20:29 | HP ---
CHIEF COMPLAINT: Nausea and vomiting. HISTORY OF PRESENT ILLNESS: Ms. Zhou is a pleasant 83-year-old woman, coming from [facility] with nausea and vomiting, believed to be associated with new antibiotics started for bilateral lower extremity cellulitis. The patient states there was notable improvement with erythema involving both legs and pain. However, she has been unable to tolerate the antibiotics. She reports having nausea and vomiting since last night. While in the emergency department, she noticed some epigastric discomfort. She denies having any fevers, chills, or sweats. Reports having long-standing issues with lymphedema involving both legs. She states she is having an "allergic reaction" to the antibiotics, but denies having any rash or hives. No tongue swelling, difficulty with breathing, or any other anaphylactic type reaction. The patient was advised switching to IV antibiotics and since this cannot be given at [facility], she was brought to the emergency department and referred for further treatment. Of note, the patient states she does suffer from chronic constipation and had her last bowel movement 3 days ago. She denies any abdominal bloating. She has been passing wind. Very concerned about receiving her regular medications for constipation. She does report a decreased appetite in the last 4 days and states she is not normally good about maintaining adequate hydration including drinking water. PAST MEDICAL HISTORY: 1. Diabetes mellitus, type 2. 2. Generalized weakness, bed-bound. 3. Hypertension. 4. COPD. 5. Heart failure. PAST SURGICAL HISTORY: 1. Vaginal prolapse repair and cyst excision. 2. Partial hysterectomy. 3. Bilateral cataract surgery. 4. Retinal surgery to the left eye. SOCIAL HISTORY: The patient lives at [facility]. No alcohol use, tobacco use, or illicit drug use. ALLERGIES: 1. IODINE. 2. LATEX GLOVES. 3. PENICILLIN. 4. SULFA. CURRENT MEDICATIONS: 1. Aspirin. 2. Citalopram. 3. Furosemide. 4. Levothyroxine. 5. Losartan. PHYSICAL EXAMINATION: GENERAL: The patient appears well developed, well nourished, and is in no acute distress. VITAL SIGNS: Temperature 98.1, pulse 80, respirations 18, blood pressure 144/70, O2 saturation 98% on 2 L of oxygen. The patient uses oxygen at home. HEENT: Normocephalic and atraumatic. Pupils are equal, round, reactive to light. Sclerae are without icterus. Oropharynx, lips notable for cheilitis. NECK: Supple. LUNGS: Clear to auscultation bilaterally. CARDIAC: Regular rate and rhythm. ABDOMEN: Morbidly obese, soft, with epigastric discomfort on palpation as well as discomfort in the right upper quadrant on palpation. Normoactive bowel sounds present. EXTREMITIES: Bilateral lower extremity lymphedema with erythema to the right lower leg anteriorly and this area is warm to touch. Wound to the left lateral ankle with wounds that appear to be draining green discharge. Unclear how this was compared to previously. The patient with significant pain involving the lower legs with slight touch, which she states it is chronic and made worse with recent infection. Bilateral pedal pulses are strong and equal. NEUROLOGIC: Alert and oriented x3. SKIN: Without jaundice. LABORATORY DATA: Full blood count unremarkable. Electrolytes normal. GFR 64, which appears to be at her baseline. Creatinine 0.85. AST elevated at 114 and ALT at 79. Total bilirubin 0.5. IMAGING DATA: None. IMPRESSION AND PLAN: Ms. Zhou is a pleasant 83-year-old woman, who is being referred for management of the following; 1. Nausea and vomiting. Per ED physician, believed to be a reaction or intolerance rather to her oral antibiotics. She has several allergies and was advised IV antibiotics, which could not be provided at [facility]. She has been started on IV vancomycin. At present, the patient remains afebrile and with no evidence of leukocytosis. She did report epigastric discomfort on exam and noted to have a mild transaminitis. We will add on lactic acid and lipase to rule out the possibility of pancreatitis. We will also obtain an abdominal ultrasound. We will give Zofran p.r.n. for nausea and vomiting. 2. Bilateral lower extremity cellulitis. We will continue IV antibiotics. Wound Care consulted. 3. Diabetes mellitus. We will initiate insulin sliding scale and monitor blood glucose. 4. Hypertension. We will resume home medications once reconciled. We will monitor blood pressure. 5. Hypothyroidism. We will resume Synthroid once reconciled. 6. Constipation. We will give senna twice daily and Dulcolax p.r. suppository p.r.n. for constipation. We will give very gentle hydration. 7. Code status, DNAR. Her surrogate decision maker is her , Kenneth Zhou. Job ID: [id number]
[2018-11-13] MEDS: Famotidine/PF 20 mg/2ml Vial SLOW IVP SCH (20:34)
[2018-11-13] MEDS: Sodium Chloride 0.9% 1,000 ML IV SCH (20:35)
--- NOTE | 2018-11-13 20:37 | RAD ---
Radiograph left foot 3 views: DATE: 11/13/2018 HISTORY: 83-year-old female with left foot pain and swelling. Rule out osteomyelitis. COMPARISON: None available FINDINGS: Diffuse soft tissue edema. Diffuse osteopenia. Innumerable tiny focal lucencies throughout all visual ized bone. No periostitis, fracture, or rajesh bone destruction. Os naviculare. No high-grade DJD. IMPRESSION: 1. Innumerable tiny lucencies throughout all visualized bones. This is probably due to diffuse severe osteoporosis. Multiple myeloma can also have this appearance, as well as osteomyelitis, although it would be unlikely for osteomyelitis to involve all bones of the foot. 2. Diffuse soft tissue edema.
[2018-11-13] MEDS: Senokot S 8.6-50 MG TAB PO SCH (20:39)
[2018-11-13 20:55] VITALS: BMI 60.8
[2018-11-13 20:57] LABS: Lactic Acid 0.8 mmol/L (0.5-2.2)
[2018-11-13] MEDS ORDERED: EMOLLIENT TOP SCH (21:00)
[2018-11-13] MEDS ORDERED: Triamcinolone 40 MG/ML VIAL TOP SCH (21:00)
[2018-11-14] MEDS: Levothyroxine Sodium 100 MCG TAB PO SCH (05:20)
[2018-11-14 06:53] LABS: #Basophils 0.1 thou/uL (0.0-0.2); #Eosinphils 0.2 thou/uL (0.0-0.7); #Lymphocytes 0.9 thou/uL (1.20-3.40); #Monocytes 0.3 thou/uL (0.11-0.59); %Basophils 0.9 % (0.0-1.0); %Eosinophils 4.4 % (0.0-10.0); %Lymphocytes 16.1 % (21.0-51.0); %Monocytes 5.6 % (0.0-10.0); Hemoglobin 11.2 g/dL (12.0-16.0); Mean Corpuscular HGB CONC 31.1 g/dL (32.0-36.0); Mean Corpuscular Hemoglobin 29.3 pg (27.0-31.0); Mean Corpuscular Volume 94.5 fL (78.0-98.0); Mean Platelet Volume 7.9 fL (7.4-10.4); Platelet Count 262 thou/uL (130-400); RBC Distribution Width 15.4 % (11.5-14.5); Red Blood Cell (RBC) Count 3.81 mill/uL (4.20-5.40); White Blood Cell (WBC) Count 5.5 thou/uL (4.8-10.8)
[2018-11-14 07:14] LABS: BUN (Urea Nitrogen) 10 mg/dL (9.8-20.1); Calc. Creatinine Clearance 123 mL/min (70-130); Calcium 9.7 mg/dL (7.8-10.44); Estimated GFR-MDRD 61; Glucose 95 mg/dL (83-110)
[2018-11-14 07:24] LABS: Anion Gap 14 mmol/L (10-20); Carbon Dioxide 33 mmol/L (23-31); Chloride 95 mmol/L (98-107); Potassium 3.3 mmol/L (3.5-5.1); Sodium 139 mmol/L (136-145)
--- NOTE | 2018-11-14 08:13 | ULT ---
ULTRASOUND ABDOMEN COMPLETE: DATE: 11/14/2018 HISTORY: 83-year-old female with epigastric and right upper quadrant abdominal pain with nausea and vomiting. FINDINGS: Gallbladder: Excessively distended. Sludge. Mural thickening mildly, 4 mm. Reportedly positive sonogr aphic Agrcia sign. Liver: Normal size. Left lobe normal echogenicity. Right lobe poorly visualized because of body habit us. Common duct caliber: 10 mm. Bilateral kidneys: No hydronephrosis. Right kidney poorly visualized. 3 cm right renal cyst. Pancreas: Nonspecific sonographic appearance. Abdominal aorta: Mid and distal portions completely Obscured by shadowing from bowel gas. Inferior vena cava: Poorly visualized. Spleen: No splenomegaly IMPRESSION: 1) Evidence for common bile duct obstruction.. 2) possibility of acute cholecystitis. 3) abdominal aorta not visualized.
[2018-11-14] MEDS: Senokot S 8.6-50 MG TAB PO SCH ×2 (09:06→20:32)
[2018-11-14] MEDS: Famotidine/PF 20 mg/2ml Vial SLOW IVP SCH ×2 (09:07→20:32)
[2018-11-14] MEDS: Aspirin 81 mg Enteric Coated Tablet PO SCH (09:07)
[2018-11-14] MEDS: Losartan 25 MG TAB PO SCH (09:07)
[2018-11-14] MEDS: Furosemide 80 MG TAB PO SCH (09:07)
[2018-11-14 09:19] LABS: ALT (SGPT) 61 U/L (8-55); AST (SGOT) 73 U/L (5-34); Albumin 3.3 g/dL (3.4-4.8); Alkaline Phosphatase 82 U/L (40-150); Bilirubin, Direct 0.2 mg/dL (0.1-0.3); Bilirubin, Total 0.5 mg/dL (0.2-1.2); Lipase 68 U/L (8-78); Protein, Total 6.3 g/dL (6.0-8.3)
--- NOTE | 2018-11-14 12:24 | PDOC.PN ---
- Subjective Encounter Start Date: 11/14/18 Encounter Start Time: 12:21 Subjective: Patient states she feels well, pain in her legs is well controlled. Denies -: any further n/v and abdominal discomfort has improved. No fevers or chills. -: Denies any worsening in SOB from baseline. No chest pain. No cough. Patient feels a new bed she was using at the [facility] is what perpetuated the lower leg swelling/erythema. States she is allergic to any kind of plastic. - Objective Resuscitation Status - Order Detail: 11/13/18 19:17 Resuscitation Status Routine Co-Sign Provider: Resuscitation Status: FULL: Full Resuscitation Vital Signs & Weight: Vital Signs (12 hours) Temp Pulse Resp BP Pulse Ox 11/14/18 11:56 98.4 F 67 20 116/54 L 95 11/14/18 07:57 98.6 F 69 20 119/71 94 L Weight Weight 354 lb 9.6 oz I&O: 11/13/18 11/14/18 11/15/18 06:59 06:59 06:59 Intake Total 720 Output Total 450 Balance 270 Result Diagrams: 11/14/18 06:19 11/14/18 06:19 Additional Labs: Accuchecks 11/14/18 11/14/18 11/13/18 11:17 05:12 19:57 POC Glucose 151 H 100 212 H Phys Exam - Physical Examination Constitutional: NAD Sleeping comfortably, easily woken, no acute distress HEENT: PERRLA lower lip notable for cheilitis, no ulcers/sores Neck: supple Respiratory: no wheezing, no rales, no rhonchi, clear to auscultation bilateral Cardiovascular: RRR, no significant murmur Gastrointestinal: soft, non-tender, positive bowel sounds obese Chronic lymphedema with nodular apperance, increased erythema of RLE, dressing in place to left heel pressure ulcer. No surround erythema/warmth. Neurological: non-focal Psychiatric: normal affect, A&O x 3 Dx/Plan (1) Pressure ulcer of left heel Code(s): L89.629 - PRESSURE ULCER OF LEFT HEEL, UNSPECIFIED STAGE Status: Acute Plan: Seen by wound care, dressing in place. Obtain wound culture results from [facility]. (2) Cellulitis of both lower extremities Code(s): L03.115 - CELLULITIS OF RIGHT LOWER LIMB; L03.116 - CELLULITIS OF LEFT LOWER LIMB Status: Acute Plan: Continue IV Antibiotics. Transition to PO once cleared for discharge. (3) Biliary obstruction Status: Acute Plan: N/V and abdominal pain resolved. Abdo US notable for distended GB with sludge and suspected biliary obstruction. CBD 10 mm. Patient showing no signs of obstruction clinically and AST/ALT improved. T. bili normal. Not a surgical candidate. Per discussion with Dr. Winston this morning, consult placed to Gastroenterology. Further imaging as per GI recommendations. (4) Hyperkalemia Code(s): E87.5 - HYPERKALEMIA Status: Acute Plan: Potassium replaced. Continue to monitor electrolytes. (5) HTN (hypertension) Code(s): I10 - ESSENTIAL (PRIMARY) HYPERTENSION Status: Chronic Qualifiers: Plan: Monitor BP. Continue antihypertensives. (6) Diabetes type 2, controlled Code(s): E11.9 - TYPE 2 DIABETES MELLITUS WITHOUT COMPLICATIONS Status: Chronic Plan: Continue ISS and monitor glucose, (7) Chronic respiratory failure with hypoxia, on home O2 therapy Code(s): J96.11 - CHRONIC RESPIRATORY FAILURE WITH HYPOXIA; Z99.81 - DEPENDENCE ON SUPPLEMENTAL OXYGEN Status: Chronic Plan: At baseline. Continue home O2, monitor O2 sats. - Plan cont current plan of care, continue antibiotics * .
[2018-11-14] MEDS: Sodium Chloride 0.9% 1,000 ML IV SCH (17:24)
--- NOTE | 2018-11-14 21:43 | CON ---
DATE OF CONSULTATION: 11/14/2018 REASON FOR CONSULTATION: Common bile duct dilation. HISTORY OF PRESENT ILLNESS: Ivone Zhou is an 83-year-old woman with morbid obesity. She was admitted to the hospital yesterday. She has developed a bilateral lower extremity cellulitis. She had recently been started on some oral antibiotics. The day before last, she started having acute nausea and vomiting as well as upper abdominal discomfort. She thought that perhaps this was a reaction to the antibiotics, so she was sent here for further evaluation and IV antibiotics. She was started on vancomycin. However, workup on arrival did show a new elevation in LFTs. Note, LFTs had always been normal before, but AST was up to 114, ALT 79, though total bilirubin was normal at 0.5, so an abdominal ultrasound was performed yesterday and this demonstrated a distended gallbladder with gallbladder sludge and also a distended common bile duct to 10 mm. The patient since then has been doing better. There has been no further nausea or vomiting. She says she has some twinges of occasional right upper quadrant discomfort, but only to deep palpation. Her LFTs have declined significantly with AST now down to 73, ALT down to 61. Note that she has seen my GI colleague, Dr. King, in the past. She had a colonoscopy in 2016. She evidently did not do very well with the sedation for the procedure and has been deemed a poor candidate for further operations and procedures. REVIEW OF SYSTEMS: Full review of systems including constitutional; head, eyes, ears, nose, and throat; GI; ; cardiovascular; respiratory; musculoskeletal; and neurologic systems is negative except as noted in the HPI. PAST MEDICAL HISTORY: 1. Diabetes type 2. 2. Morbid obesity. 3. Debility, bedbound. 4. Hypertension. 5. COPD. 6. Heart failure. 7. Vaginal prolapse repair and cyst excision. 8. Partial hysterectomy. 9. Bilateral cataract surgery. 10. Retinal surgery to the left eye. SOCIAL HISTORY: The patient lives at [facility]. No smoking, alcohol, or drug use. ALLERGIES: IODINE, LATEX GLOVE, PENICILLIN, SULFA. OUTPATIENT MEDICATIONS: 1. Aspirin. 2. Citalopram. 3. Furosemide. 4. Levothyroxine. 5. Losartan. FAMILY HISTORY: Noncontributory. PHYSICAL EXAMINATION: VITAL SIGNS: Temperature 98.4, pulse 67, blood pressure 116/54, and 95% oxygen saturation on 2 L nasal cannula. GENERAL: Morbidly obese woman, lying in bed comfortably, in no acute distress, nontoxic. SKIN: No jaundice. EXTREMITIES: I did not examine her left lower extremity wound, but this is well documented elsewhere. She has some bilateral lower extremity erythema. HEENT: Eyes, no scleral icterus. Extraocular movements intact. ENT, mucous membranes are moist. No oral lesions. She is on nasal cannula oxygen. NECK: Large neck. No thyromegaly. Nontender to palpation. HEART: Distant heart sounds. LUNGS: Distant breath sounds. ABDOMEN: Bowel sounds present. Soft, nontender to deep palpation throughout. No guarding or rebound tenderness. The abdomen is quite obese. EXTREMITIES: Bilateral lower extremity edema with patchy erythema. NEURO: Cranial nerves 2 through 12 intact bilaterally. LABORATORY STUDIES: Hemoglobin 11.2, WBC 5.5, platelets 262. Total bilirubin 0.5, alkaline phosphatase 82, AST 73, ALT 61, albumin 3.3, lipase only 68. Note that yesterday transaminases were elevated to a greater degree with AST 114, ALT 79. BUN is 10, creatinine 0.88. IMAGING STUDIES: Abdominal ultrasound from yesterday demonstrated a positive Garcia sign, distended gallbladder with biliary sludge, and common bile duct dilation to 10-mm in diameter. ASSESSMENT AND PLAN: 1. Nausea and vomiting, improved. 2. Elevated liver function tests, improving. 3. Dilated common bile duct. 4. Biliary sludge. The patient's presentation seems most consistent with symptomatic gallbladder disease. I suspect she probably passed some stone or sludge out of her common bile duct and that was the cause of her symptoms and spike in LFTs. I discussed with the patient that usually in this situation, cholecystectomy is recommended and she is going to be at risk for further episodes of this, which may be more severe. Obviously, she is a poor surgical candidate. Regarding the possibility of retained stone or sludge in the common bile duct, I do note the biliary dilation, but also note symptomatic improvement and improving LFTs at this time. I think it would be reasonable to obtain an MRCP for better assessment of the common bile duct, and would certainly want better imaging before proceeding with any endoscopic retrograde cholangiopancreatography. We will go ahead and order the MRCP, though it is possible this may not be able to be performed due to the patient's body habitus. If the MRCP is able to be performed and does indeed show choledocholithiasis, then I would recommend surgical evaluation and try to arrange for combined ERCP and cholecystectomy in one procedure to minimize anesthesia risk. If MRCP is not able to be performed, then I would trend the LFTs tomorrow and observe for recurrent symptoms, and would still recommend surgical evaluation, again given the likelihood of recurrent episodes going forward. Thank you for the consultation. Please call anytime with questions or concerns. Job ID: [id number]
[2018-11-15] MEDS: Levothyroxine Sodium 100 MCG TAB PO SCH (05:36)
[2018-11-15 07:15] LABS: ALT (SGPT) 45 U/L (8-55); AST (SGOT) 44 U/L (5-34); Albumin 3.1 g/dL (3.4-4.8); Alkaline Phosphatase 72 U/L (40-150); Bilirubin, Direct 0.2 mg/dL (0.1-0.3); Bilirubin, Total 0.5 mg/dL (0.2-1.2); Protein, Total 5.9 g/dL (6.0-8.3)
[2018-11-15] MEDS: Aspirin 81 mg Enteric Coated Tablet PO SCH (08:09)
[2018-11-15] MEDS: Senokot S 8.6-50 MG TAB PO SCH ×2 (08:09→20:45)
[2018-11-15] MEDS: Furosemide 80 MG TAB PO SCH (08:09)
[2018-11-15] MEDS: Famotidine/PF 20 mg/2ml Vial SLOW IVP SCH ×2 (08:09→20:57)
[2018-11-15] MEDS: Losartan 25 MG TAB PO SCH (08:09)
[2018-11-15] MEDS: Sodium Chloride 0.9% 1,000 ML IV SCH (08:10)
--- NOTE | 2018-11-15 09:51 | PDOC.PN ---
- Subjective Encounter Start Date: 11/15/18 Encounter Start Time: 09:47 Subjective: Patient states she has been feeling constipated but able to have a bowel -: movement this morning. Denies any n/v. No abdo pain. No issues overnight. -: Continues to feel her breathing is at baseline. Concerned about procedure scheduled and the possibility of being put under anesthesia for procedures or surgeries. States she was told by Dr. Barrett, she would not tolerate anesthesia due to poor tolerance to it in the past. She states she was told she could . Patient is morbidly obese with poor pulmonary function at baseline, requiring continuous O2. - Objective Resuscitation Status - Order Detail: 11/13/18 19:17 Resuscitation Status Routine Co-Sign Provider: Resuscitation Status: DNAR: NO Resuscitation Discussed with: Patient Vital Signs & Weight: Vital Signs (12 hours) Temp Pulse Resp BP Pulse Ox 11/15/18 08:14 98.7 F 71 22 H 111/64 92 L 11/15/18 04:43 97.9 F 68 18 145/75 H 95 11/15/18 00:15 98.0 F 68 18 155/83 H 95 Weight Admit Weight 354 lb 9.6 oz Weight 354 lb 9.6 oz I&O: 11/14/18 11/15/18 11/16/18 06:59 06:59 06:59 Intake Total 720 Output Total 450 Balance 270 Result Diagrams: 11/14/18 06:19 11/14/18 06:19 Additional Labs: Accuchecks 11/15/18 11/14/18 11/14/18 04:47 19:39 17:19 POC Glucose 120 H 131 H 113 H 11/14/18 11:17 POC Glucose 151 H Phys Exam - Physical Examination Constitutional: NAD HEENT: PERRLA, oral pharynx no lesions Neck: full ROM Respiratory: no wheezing, no rales Cardiovascular: RRR Gastrointestinal: soft, non-tender, no distention, positive bowel sounds Neurological: moves all 4 limbs Psychiatric: normal affect, A&O x 3 Dx/Plan (1) Constipation Code(s): K59.00 - CONSTIPATION, UNSPECIFIED Status: Acute Plan: Patient able to have a large stool but hard. Will adjust stool softeners. (2) Pressure ulcer of left heel Code(s): L89.629 - PRESSURE ULCER OF LEFT HEEL, UNSPECIFIED STAGE Status: Acute (3) Cellulitis of both lower extremities Code(s): L03.115 - CELLULITIS OF RIGHT LOWER LIMB; L03.116 - CELLULITIS OF LEFT LOWER LIMB Status: Acute (4) Biliary obstruction Status: Acute Plan: LFTs essentially back to normal. Patient unable to have MRCP done due to her weight, confirmed with nurse and NM. Duarte Case following. (5) HTN (hypertension) Code(s): I10 - ESSENTIAL (PRIMARY) HYPERTENSION Status: Chronic Qualifiers: (6) Diabetes type 2, controlled Code(s): E11.9 - TYPE 2 DIABETES MELLITUS WITHOUT COMPLICATIONS Status: Chronic Plan: Continue meds, ISS and monitor glucose. (7) Chronic respiratory failure with hypoxia, on home O2 therapy Code(s): J96.11 - CHRONIC RESPIRATORY FAILURE WITH HYPOXIA; Z99.81 - DEPENDENCE ON SUPPLEMENTAL OXYGEN Status: Chronic - Plan * .
[2018-11-15] MEDS: Polyethylene Glycol 3350 17 GM Packet PO SCH ×2 (12:00)
--- NOTE | 2018-11-15 23:05 | CON ---
DATE OF CONSULTATION: 11/15/2018 REQUESTING PHYSICIAN: Osorio King MD HISTORY: Ms. Zhou is an 83-year-old morbidly obese woman, BMI 61. The patient was admitted 2 days previously for lower extremity cellulitis. The patient is currently on IV antibiotic therapy. The patient reportedly bumped abdomen accidentally yesterday with a bedside tray and immediately felt some periumbilical anterior abdominal wall pain. Her pain was quite intense, rated at 9/10 yesterday. Today, she denies any significant abdominal pain. She denies any nausea or vomiting. She denies any fevers or chills. She denies any postprandial abdominal pain in the past. She has been having loose bowel movement since yesterday. She denies any hematochezia or melena. PAST MEDICAL HISTORY: Significant for morbid obesity, chronic congestive heart failure, type 2 diabetes mellitus, COPD, essential hypertension, and chronic depression. SURGICAL HISTORY: Significant for partial abdominal hysterectomy, bilateral intraocular lens implantation, repair of vaginal prolapse, retinal surgery to the left eye. SOCIAL HISTORY: The patient lives in an extended care facility in [place]. She denies any cigarette smoking, ethanol, or illicit drug abuse. PRE-HOSPITALIZATION MEDICATIONS: Include: 1. Acetaminophen 1000 mg p.o. q.6 hours p.r.n. 2. Albuterol inhaler used q.4 hours p.r.n. 3. Citalopram 10 mg p.o. daily. 4. Furosemide 80 mg p.o. daily. 5. Lantus insulin 25 units at bedtime and 40 units q.a.m. 6. She uses Atrovent inhaler every 4 hours as needed. Additionally, the patient is on: 1. Prednisone 10 mg p.o. daily. 2. Aspirin 81 mg p.o. daily. 3. Levothyroxine 100 mcg p.o. daily. 4. Lorazepam 0.5 mg p.o. q.4 hours p.r.n. 5. Losartan 50 mg p.o. daily. ALLERGIES: TO IODINE, PENICILLIN, SULFA DRUGS, AND LATEX. REVIEW OF SYSTEMS: Ten-point review of systems is essentially unremarkable except as stated in past medical history and chief complaint. PHYSICAL EXAMINATION: GENERAL: An 83-year-old morbidly obese woman who is otherwise coherent, interactive, and appears stated age. The patient is alert and oriented x3 and appears to be in no acute distress at the time of my evaluation. VITAL SIGNS: Currently include blood pressure 118/58, pulse 68, respiratory rate is 20, temperature is 97.8 degrees Fahrenheit, and oxygen saturation is 95% on 2 L by nasal cannula oxygen. HEENT: Normocephalic and atraumatic. Pupils are equal, round, and reactive to light and accommodation. She has no jugular venous distention noted. HEART: Regular rate and rhythm. No murmurs or gallops auscultated. LUNGS: Scattered basilar rhonchi. Breathing is regular and nonlabored. ABDOMEN: Morbidly obese and with mild tenderness to palpation lateral to the umbilicus on the right. She has no right upper quadrant tenderness to palpation. Liver and spleen are nonpalpable below costal margins. She clearly has no gross rebound tenderness present. EXTREMITIES: 2+ radial pulses bilaterally. Both feet are warm to touch. She has significant bilateral lower extremity venous stasis with associated skin inflammation. There is a small skin breakdown, lateral aspect of the left ankle, with serous drainage present. No gross purulence is evident. NEUROLOGIC: No focal deficits present. LABORATORY DATA: Laboratory findings today include CBC with 5500 white blood cells, hemoglobin and hematocrit 11.2 and 36.0 respectively. Platelet count is 262,000. Metabolic profile: Sodium 139, potassium 3.3, chloride is 95, bicarb is 33, BUN is 10, creatinine is 0.88, glucose is 95. AST is 44 and ALT is 45, alkaline phosphatase is 72. AST and ALT yesterday were 73 and 61 respectively which were also better than 114 and 79 respectively on 11/13/2018. Total bilirubin has remained normal at 0.5. Alkaline phosphatase has also remained normal today at 72. I have personally reviewed the abdominal ultrasound which was obtained yesterday, shows: 1. Distended gallbladder with biliary sludge and no echogenic stones present. 2. Significant gallbladder wall thickening or pericholecystic fluid present. 3. Common bile duct is slightly dilated for this patient's age at 10 mm in diameter. IMPRESSION: 1. Resolving abdominal pain in the face of biliary sludge. a. I doubt this is secondary to acute cholecystitis. 2. Morbid obesity. 3. History of chronic congestive heart failure. 4. History of chronic obstructive pulmonary disease. RECOMMENDATIONS: 1. We will obtain a HIDA scan to rule out any obstructive biliary disease. 2. If the HIDA scan is suggestive of acute cholecystitis, we will give consideration to percutaneous cholecystostomy tube placement given this patient's significant comorbidities. 3. There is no acute surgical indication for this patient at this time. 4. We will review findings of the HIDA scan once performed and make further recommendations as necessary. Above findings and recommendations have been discussed with the patient who indicates understanding of information given. I have answered her questions. We will recommend clear liquid diet today and n.p.o. after midnight. Thank you again, Dr. King, for allowing me the opportunity to participate in the care of this patient. Job ID: [id number]
--- NOTE | 2018-11-16 01:20 | CON ---
DATE OF CONSULTATION: HISTORY OF PRESENT ILLNESS: Ms. Zhou is feeling well. She is resting in bed. She has no pain now. She does complain of some diarrhea. She states that she was told maybe that is her gallbladder. She is also on antibiotics, however, for cellulitis in her legs. PHYSICAL EXAMINATION: VITAL SIGNS: Temperature is 97, she has been afebrile since admission. Pulse 66, blood pressure is 157/78. GENERAL: She is obese. She is in no distress. ABDOMEN: Very large pannus. She has no tenderness, rebound or guarding. LABORATORY DATA: No labs today except for AST of 44, ALT of 45, alkaline phosphatase 72, bilirubin is normal. IMAGING DATA: The patient did have an ultrasound showing mild gallbladder wall thickening and distended gallbladder 10 mm common bile duct. ASSESSMENT/PLAN: 1. She has gallstones. She has had a little bit of pain and she has some mild thickening of the gallbladder wall, but she has no pain now. No leukocytosis. No signs of acute cholecystitis. There is actually just a sludge noted in the gallbladder. The LFTs are not consistent with an obstructed bile duct. There were no signs of intrahepatic ductal dilatation on her ultrasound and with her body habitus measurements of the common bile duct. Unfortunately, she was not able to have an MRCP, but fortunately she has no pain now. She would be very high risk for surgery or intervention such as ERCP. With the concern for the possible thickened gallbladder wall on admission, she probably should be seen by General Surgery, but operation with no symptoms at this time. Likewise, she does not need an ERCP. There were no signs of bile duct obstruction with a mildly elevated AST and normal alkaline phosphatase, bilirubin and ALT. We will follow along with you. 2. As far as her diarrhea, she is on antibiotics and has been for some time. I would recommend she get a stool for C diff and she will be placed on probiotics if she does not get. Job ID: [id number]
[2018-11-16] MEDS: Levothyroxine Sodium 100 MCG TAB PO SCH (05:37)
[2018-11-16 07:21] LABS: ALT (SGPT) 36 U/L (8-55); AST (SGOT) 30 U/L (5-34); Albumin 3.1 g/dL (3.4-4.8); Alkaline Phosphatase 73 U/L (40-150); Bilirubin, Direct 0.2 mg/dL (0.1-0.3); Bilirubin, Total 0.5 mg/dL (0.2-1.2); Protein, Total 5.9 g/dL (6.0-8.3)
[2018-11-16] MEDS: Sodium Chloride 0.9% 1,000 ML IV SCH (08:22)
[2018-11-16] MEDS: Famotidine/PF 20 mg/2ml Vial SLOW IVP SCH ×2 (08:23→20:59)
[2018-11-16] MEDS: Losartan 25 MG TAB PO SCH (08:24)
[2018-11-16] MEDS: Furosemide 80 MG TAB PO SCH (08:24)
[2018-11-16] MEDS: Polyethylene Glycol 3350 17 GM Packet PO SCH (08:24)
[2018-11-16] MEDS: Senokot S 8.6-50 MG TAB PO SCH ×2 (08:24→20:59)
[2018-11-16] MEDS: Aspirin 81 mg Enteric Coated Tablet PO SCH (08:24)
[2018-11-16 08:28] LABS: Vancomycin, Trough 18.6 ug/mL
--- NOTE | 2018-11-16 12:32 | NM ---
Radionucleotide hepatobiliary scan and gallbladder ejection fraction HISTORY: Cholecystitis. Abdominal pain. FINDINGS: Homogeneous uptake of radiotracer throughout the liver. Gallbladder first seen at the 18 mi nutes. Uptake within the small bowel at 37 minutes. After administration of fatty meal, there is mild excretion of radiotracer from the gallbladder to th e small bowel. Ejection fraction calculated at 26%. IMPRESSION: Common duct and cystic duct are patent. Abnormal gallbladder ejection fraction, consistent with chronic gallbladder dyskinesis.
--- NOTE | 2018-11-16 16:36 | PRG ---
DATE OF SERVICE: 11/16/2018 SUBJECTIVE: Ms. Zhou is an 83-year-old morbidly obese woman with a BMI of 61. I saw this patient in consultation yesterday following a vague abdominal pain after she bumped the anterior abdomen against the bedside tray. Her workup at that time included abdominal ultrasound, which revealed a biliary sludge, but no pericholecystic fluid or gallbladder wall thickening or gallstones. LFTs were marginally elevated, but was normalizing. My clinical examination revealed no significant abdominal pain. The patient was tolerant of liquid diet at that time. I had ordered a HIDA scan, which was completed today. HIDA scan reveals no biliary obstruction; however, the ejection fraction was noted at 26%. This morning, the patient denies any abdominal pain. She denies any nausea or vomiting. She denies any fevers or chills. OBJECTIVE: VITAL SIGNS: Her vital signs currently include blood pressure of 124/55, pulse 78, respiratory rate is 20, temperature 98.1 degrees Fahrenheit, and oxygen saturation 100% on 2 L by nasal cannula oxygen. HEENT: No scleral icterus present. HEART: Regular rate and rhythm. LUNGS: Clear to auscultation bilaterally. ABDOMEN: Morbidly obese, but nontender to palpation. NEUROLOGIC: No focal deficits present. LABORATORY FINDINGS: Today include LFTs with normal total bilirubin, normal AST and ALT at 30 and 36 respectively. IMPRESSIONS: 1. Resolved abdominal pain. 2. Chronic biliary dyskinesia with no evidence of acute cholecystitis. PLAN: No acute surgical indication for this patient at this time. I recommend we advance diet to regular. The patient may be discharged at the discretion of the primary service. General Surgery will sign off this case at this time and be available to re-evaluate the patient on demand. Job ID: [id number]
--- NOTE | 2018-11-16 17:07 | PRG ---
DATE OF SERVICE: 11/16/2018 SUBJECTIVE: Ms. Zhou has no pain. She is eating. She does note she seems to get full a little bit early. She has had no significant weight loss. A HIDA scan was done, showed good filling of the gallbladder, good drainage of biliary tree. There is a low ejection fraction. There was no reproduction of symptoms with that study. Medications were reviewed. OBJECTIVE: VITAL SIGNS: Temperature 98, pulse 76, blood pressure 124/54, weight is 354 pounds. ABDOMEN: Nontender. Cannot palpate organs. She has large pannus. Cannot palpate the spleen. There is no rebound. Bowel sounds are positive. LABORATORY DATA: Today, she had albumin of 3.10, protein of 5.9. AST and ALT of 30 and 36, and a bilirubin of 0.5. ASSESSMENT AND PLAN: Admitted with abdominal pain of unclear etiology. No signs of acute cholecystitis. She does have some gallstones and sludge. She is a poor candidate for an elective cholecystectomy. I agree with Dr. Cantrell, would not recommend any intervention surgically at this time. As far the concern for " an obstructed bile duct" on admission, there is no sign of this. She has normal flow of contrast from her HIDA scan to the small bowel and she has normal liver function tests. At this time, I think the patient can go home with a low carb diet. I am happy to see her back in evaluation as needed. Job ID: [id number]
[2018-11-16] MEDS: HumaLOG 300 UNITS/3 ML VIAL SC PRN (17:16)
--- NOTE | 2018-11-16 17:56 | PDOC.PN ---
- Subjective Encounter Start Date: 11/16/18 Encounter Start Time: 17:54 Subjective: Patient states she has been feeling well, denies any fevers, chills , sweats -: No n/v or abdo pain. Feels tired after having tests done earlier today. -: No complaints otherwise except the chronic leg pain. - Objective Resuscitation Status - Order Detail: 11/13/18 19:17 Resuscitation Status Routine Co-Sign Provider: Resuscitation Status: DNAR: NO Resuscitation Discussed with: Patient Vital Signs & Weight: Vital Signs (12 hours) Temp Pulse Resp BP Pulse Ox 11/16/18 16:45 97.8 F 69 20 125/73 100 11/16/18 13:09 98.1 F 78 20 124/55 L 100 11/16/18 08:32 97.9 F 71 20 157/75 H 97 Weight Admit Weight 354 lb 9.6 oz Weight 354 lb 9.6 oz I&O: 11/15/18 11/16/18 11/17/18 06:59 06:59 06:59 Intake Total 2180 Output Total 2 Balance 2178 Result Diagrams: 11/14/18 06:19 11/14/18 06:19 Additional Labs: Accuchecks 11/16/18 11/16/18 11/16/18 16:30 11:59 05:13 POC Glucose 184 H 200 H 147 H 11/15/18 20:06 POC Glucose 229 H Phys Exam - Physical Examination Constitutional: NAD HEENT: PERRLA, oral pharynx no lesions Neck: no nodes, supple, full ROM Respiratory: clear to auscultation bilateral Cardiovascular: RRR Gastrointestinal: soft, non-tender, no distention, positive bowel sounds obese Musculoskeletal: edema present bilaterally with nodular appearance, erythema Psychiatric: normal affect, A&O x 3 Dx/Plan (1) Pressure ulcer of left heel Code(s): L89.629 - PRESSURE ULCER OF LEFT HEEL, UNSPECIFIED STAGE Status: Acute (2) Cellulitis of both lower extremities Code(s): L03.115 - CELLULITIS OF RIGHT LOWER LIMB; L03.116 - CELLULITIS OF LEFT LOWER LIMB Status: Acute Plan: Patient has been on Vancomycin. Switch to Levaquin PO as expected to go home tomorrow on oral abx. Continue wound care. (3) Biliary obstruction Status: Resolved Plan: Status post HIDA scan, ducts patent. Cleared by Dr. Cantrell for discharge as well as by Dr. Barrett. No intervention needed at this time. LFTs normal and symptoms resolved. (4) HTN (hypertension) Code(s): I10 - ESSENTIAL (PRIMARY) HYPERTENSION Status: Chronic Qualifiers: (5) Diabetes type 2, controlled Code(s): E11.9 - TYPE 2 DIABETES MELLITUS WITHOUT COMPLICATIONS Status: Chronic (6) Chronic respiratory failure with hypoxia, on home O2 therapy Code(s): J96.11 - CHRONIC RESPIRATORY FAILURE WITH HYPOXIA; Z99.81 - DEPENDENCE ON SUPPLEMENTAL OXYGEN Status: Chronic - Plan cont current plan of care, continue antibiotics * .
[2018-11-16 18:49] LABS: Lactic Acid 0.9 mmol/L (0.5-2.2)
[2018-11-17] MEDS: Sodium Chloride 0.9% 1,000 ML IV SCH (04:48)
[2018-11-17] MEDS: HumaLOG 300 UNITS/3 ML VIAL SC PRN ×3 (05:32→17:04)
[2018-11-17] MEDS: Levothyroxine Sodium 100 MCG TAB PO SCH (05:32)
[2018-11-17 06:34] LABS: #Eosinphils 0.3 thou/uL (0.0-0.7); #Lymphocytes 0.9 thou/uL (1.20-3.40); #Monocytes 0.3 thou/uL (0.11-0.59); #Neutrophils 4.1 thou/uL (1.40-6.50); %Basophils 0.8 % (0.0-1.0); %Eosinophils 5.5 % (0.0-10.0); %Lymphocytes 15.5 % (21.0-51.0); %Monocytes 5.6 % (0.0-10.0); %Neutrophils 72.6 % (42.0-75.0); Hemoglobin 11.1 g/dL (12.0-16.0); Mean Corpuscular Hemoglobin 29.2 pg (27.0-31.0); Mean Corpuscular Volume 94.1 fL (78.0-98.0); Mean Platelet Volume 8.2 fL (7.4-10.4); Platelet Count 244 thou/uL (130-400); RBC Distribution Width 15.2 % (11.5-14.5); White Blood Cell (WBC) Count 5.6 thou/uL (4.8-10.8)
[2018-11-17 06:50] LABS: ALT (SGPT) 32 U/L (8-55); AST (SGOT) 26 U/L (5-34); Albumin 3.1 g/dL (3.4-4.8); Alkaline Phosphatase 69 U/L (40-150); Anion Gap 9 mmol/L (10-20); BUN (Urea Nitrogen) 6 mg/dL (9.8-20.1); Bilirubin, Total 0.5 mg/dL (0.2-1.2); Calc. Creatinine Clearance 144 mL/min (70-130); Calcium 9.4 mg/dL (7.8-10.44); Carbon Dioxide 36 mmol/L (23-31); Chloride 98 mmol/L (98-107); Estimated GFR-MDRD 74; Glucose 153 mg/dL (83-110); Protein, Total 6.1 g/dL (6.0-8.3); Sodium 140 mmol/L (136-145)
[2018-11-17] MEDS: Senokot S 8.6-50 MG TAB PO SCH (08:32)
[2018-11-17] MEDS: Polyethylene Glycol 3350 17 GM Packet PO SCH (08:32)
[2018-11-17] MEDS: Famotidine/PF 20 mg/2ml Vial SLOW IVP SCH (08:33)
[2018-11-17] MEDS: Losartan 25 MG TAB PO SCH (08:33)
[2018-11-17] MEDS: Aspirin 81 mg Enteric Coated Tablet PO SCH (08:33)
[2018-11-17] MEDS: Furosemide 80 MG TAB PO SCH (08:34)
--- NOTE | 2018-11-17 13:53 | ULT ---
EXAM: Bilateral lower extremity venous duplex: Deep veins evaluated with color Doppler, spectral analysis, and compression. INDICATIONS: Bilateral lower extremity pain and edema. FINDINGS: Limited visualization of bilateral posterior tibial veins. Otherwise the deep veins interro gated include common femoral vein, femoral vein, popliteal veins. These veins show normal compression and blood flow. No evidence of DVT. IMPRESSION: Negative Bilateral venous duplex exam.
[2018-11-17] MEDS ORDERED: Furosemide 80 MG TAB PO SCH (14:00)
--- NOTE | 2018-11-17 14:30 | RAD ---
CHEST ONE VIEW: INDICATIONS: History of shortness of breath. COMPARISON: 05/07/2017 FINDINGS: There is stable cardiomegaly and mild pulmonary vascular congestion. No confluent air space opacity is grossly evident. No pneumothorax is noted. No acute osseous abnormality is noted. IMPRESSION: Mild cardiomegaly with mild pulmonary vascular congestion. POS: CET
--- NOTE | 2018-11-17 15:28 | DIS ---
DATE OF ADMISSION: 11/13/2018 DATE OF DISCHARGE: 11/17/2018 CONSULTING PHYSICIANS: 1. Dr. oHrn, Gastroenterology. 2. Dr. King, Gastroenterology. 3. Dr. Cantrell, General Surgery. DISCHARGE DIAGNOSES: 1. Chronic biliary dyskinesia with no evidence of acute cholecystitis. 2. Resolved abdominal pain. 3. Cholelithiasis, poor candidate for elective cholecystectomy. 4. Bilateral lower extremity lymphedema with cellulitis. 5. Morbid obesity. 6. Type 2 diabetes mellitus. 7. Hypertension. 8. Heart failure. HOSPITAL COURSE: Ms. Zhou is an 83-year-old woman, who was recently started on antibiotics for bilateral lower extremity cellulitis with known chronic lower extremity lymphedema. She had been put on clindamycin p.o. and then referred to [place] ER due to nausea, vomiting, felt to be associated with p.o. antibiotics. She was referred for IV antibiotics. However, upon arrival to [place], she was transferred here to [facility] ER. The patient was started on IV antibiotics with vancomycin. On initial presentation and examination, she was found to have a right upper quadrant discomfort and underwent imaging studies that revealed a common bile duct obstruction with possibility of acute cholecystitis per abdominal ultrasound. For that reason, Dr. Horn was consulted of Gastroenterology, who recommended an MRCP. Due to the patient's morbid obesity, the study could not be done. Her case was handed off to Dr. King, who was familiar with the patient. Dr. King had advised a HIDA scan, which showed good filling of the gallbladder with good drainage of the biliary tree. There was a low ejection fraction. The patient was also noted to have gallstones and sludge. No evidence of acute cholecystitis noted on the HIDA scan. She was seen by Dr. Cantrell, who felt she was a poor candidate for elective cholecystectomy and in light of complete resolution in her symptoms including nausea, vomiting, and abdominal discomfort with improved LFTs, it was felt she should not undergo any procedures. He did discuss in the future if necessary, she could be reviewed for potential biliary drain placement. Throughout her stay, the patient continued to do well and without any complaints except feeling tired from being in the hospital. She did have some increased redness in the lower extremities, which she attributed to not having her Kenalog while here, which she [facility]. We did find out on day of discharge after calling the [facility] to ensure she would be able to come back that the patient is on hospice with [facility], which was initiated on September 29, 2018. They seem to be confused as to why she was sent to the hospital in the first place. Nonetheless, the patient is doing very well and eager for discharge back to the [facility]. Given the discomfort she experiences in her legs, we did complete a venogram, which did not show any evidence of DVT. We have transitioned her to p.o. antibiotics with Levaquin, which she will continue for an additional 10 days. The patient was seen and examined by me as well as Dr. Cantrell on day of discharge. CONDITION: Stable. DIET: Heart healthy/diabetic diet, low fat as well. ACTIVITY: The patient is bed bound. DISCHARGE PRESCRIPTION: 1. The patient started on Levaquin 750 mg p.o. daily x10 days. 2. Prescription given for probiotic one tab daily for 10 days. 3. The patient to resume oxygen at home. 4. The patient otherwise advised to resume her regular home medications including her Lasix 80 mg p.o. twice daily. FOLLOWUP: The patient is advised to follow up with her primary care physician within 1 week following discharge. Also advised to continue with wound care for her pressure ulcers. DISPOSITION: The patient medically cleared for discharge back to her [facility] and hosp[facility] under [facility]. The patient's case was discussed with Dr. Cantrell, who agrees upon care as described above. Job ID: [id number]
[2018-11-17 16:27] VITALS: BP 134/69; TEMP 98
--- NOTE | 2018-11-17 17:37 | PDOC.EVN ---
Event Note - Event Note Event Note: Pt seen and examined and discussed w GIFTY Ag. agree w plan as outlined by her. all Qs answered
== END 2018-11-17 18:21 ==
LOC: ERS 12:00 → T4-B 15:14
PROVIDERS: ADMIT Internal Medicine; ATTEND Internal Medicine
DX: K80.20 Calculus of gallbladder without cholecystitis without obstruction (principal); K82.8 Other specified diseases of gallbladder; I89.0 Lymphedema, not elsewhere classified; L03.116 Cellulitis of left lower limb; L03.115 Cellulitis of right lower limb; E66.01 Morbid (severe) obesity due to excess calories; E11.9 Type 2 diabetes mellitus without complications; I11.0 Hypertensive heart disease with heart failure; I50.9 Heart failure, unspecified; L89.629 Pressure ulcer of left heel, unspecified stage; J44.9 Chronic obstructive pulmonary disease, unspecified; E03.9 Hypothyroidism, unspecified; K59.00 Constipation, unspecified; R94.5 Abnormal results of liver function studies; E87.5 Hyperkalemia; J96.11 Chronic respiratory failure with hypoxia; F32.9 Major depressive disorder, single episode, unspecified; Z66 Do not resuscitate; Z99.81 Dependence on supplemental oxygen; Z68.44 Body mass index [BMI] 60.0-69.9, adult; Z91.040 Latex allergy status; Z91.041 Radiographic dye allergy status; Z91.018 Allergy to other foods; Z88.0 Allergy status to penicillin; Z88.2 Allergy status to sulfonamides; Z91.013 Allergy to seafood; Z79.4 Long term (current) use of insulin; Z79.82 Long term (current) use of aspirin; Z79.899 Other long term (current) drug therapy
CPT/HCPCS: 71045; 73630; 76700; 78227; 80048; 80053 ×2; 80076 ×3; 80202; 82962 ×5; 83605 ×2; 83690 ×2; 83735; 85025 ×3; 87324; 87449; 93970; 96361 ×5; 96365; 96366 ×3; 96375; 96376 ×4; 97139 ×4; 99284; A9537; G0378 ×3; 36415; 36416; J3370; J7050; Q0162; S0028

== ENCOUNTER 2020-07-12 20:50 | Inpatient (IN) | payer MEDICARE, OTHER ==
[2020-07-12 21:17] LABS: Actual Bicarbonate (HCO3a) 31.1 mEq/L (22-28); Analyzer IN Cardio ER; Base Excess (BEa) 4.5 mEq/L (-2.0 to +3.0); CO2 Tension 55.5 mmHg (35.0-45.0); Carboxyhemoglobin (COHb) 0.2 gm% (0.0-3.0); Hemoglobin (Hb) 12.4 g/dL (12.0-16.0); pH, Arterial 7.37 (7.35-7.45)
[2020-07-12 21:33] LABS: Bilirubin Negative (Negative); Blood, Urine Negative (Negative); Clarity Turbid (Clear); Glucose, Urine (Dipstick) Normal (Negative); Ketone, Urine Negative (Negative); Leukocyte Negative Leu/uL (Negative); Nitrite Negative (Negative); Protein, Urine (Dipstick) 50 mg/dL (Neg-Trace); RBC/HPF 0-3 HPF (0-3); Specific Gravity, Urine 1.016 (1.002-1.036); Urobilinogen Normal mg/dL (Less than 2); WBC/HPF 0-3 HPF (0-3)
[2020-07-12 21:41] LABS: Bacteria/HPF 2+ HPF (None Seen); Calcium Oxalate Crystals Rare HPF (None Seen)
[2020-07-12 21:42] LABS: Renal Epithelial 0-3 HPF (None Seen)
[2020-07-12] MEDS ORDERED: Norepinephrine 8 MG/0.9% NS 250 ML IVPB PRN (23:36)
[2020-07-12] MEDS ORDERED: Fentanyl BOLUS 250 ML IVPB PRN (23:45)
[2020-07-12] MEDS ORDERED: DISCONTINUE PREVIOUS NARCOTIC PAIN MEDICATIONS AND BENZODIAZEPINES FS SCH (23:45)
[2020-07-12] MEDS ORDERED: Ventilator Sedation Protocol 1 EACH FS SCH (23:45)
[2020-07-12] MEDS ORDERED: Morphine 2 MG/ML VIAL SLOW IVP PRN (23:45)
[2020-07-12] MEDS ORDERED: Propofol BOLUS 1,000 MG/100 ML VIAL IV PRN (23:45)
[2020-07-13 00:03] LABS: O2 Tension (PaO2), arterial 43.8 mmHg (> 60.0)
[2020-07-13 00:04] LABS: Puncture Site LRA
[2020-07-13 00:05] LABS: ALV-art Gradient 385.925 mmHg (0-20)
[2020-07-13] MEDS ORDERED: Fentanyl CADD 100 ML ONE ×2 (00:46→22:59)
[2020-07-13] MEDS: Fentanyl CADD 100 ML IV SCH ×2 (00:51→23:00)
[2020-07-13] MEDS ORDERED: Dextrose 5% in Water 1,000 ML IV PRN (04:30)
[2020-07-13] MEDS ORDERED: Dextrose 50% Abboject 50 ML SYRINGE IVP PRN (04:30)
[2020-07-13 04:35] LABS: Hemoglobin 11.3 g/dL (12.0-16.0); Mean Corpuscular HGB CONC 32.2 g/dL (32.0-36.0); Mean Corpuscular Hemoglobin 30.7 pg (27.0-31.0); Mean Corpuscular Volume 95.3 fL (78.0-98.0); Mean Platelet Volume 8.4 fL (7.4-10.4); Platelet Count 224 thou/uL (130-400); RBC Distribution Width 13.7 % (11.5-14.5); Red Blood Cell (RBC) Count 3.68 mill/uL (4.20-5.40); White Blood Cell (WBC) Count 10.8 thou/uL (4.8-10.8)
[2020-07-13] MEDS: HumaLOG 300 UNITS/3 ML VIAL SC PRN ×4 (04:37→21:12)
[2020-07-13 04:50] LABS: Lymphocytes 2 % (21-51); MDiff Complete? YES; Metamyelocyte 1 % (0-0); Monocytes 2 % (0-10); Neutrophil 95 % (42-75); Platelet Morphology Comment Appears Adequate
[2020-07-13 04:54] LABS: Anion Gap 21 mmol/L (10-20); BUN (Urea Nitrogen) 42 mg/dL (9.8-20.1); Calc. Creatinine Clearance 48 mL/min (70-130); Calcium 7.9 mg/dL (7.8-10.44); Carbon Dioxide 26 mmol/L (23-31); Chloride 92 mmol/L (98-107); Glucose 338 mg/dL (83-110); Potassium 3.7 mmol/L (3.5-5.1); Sodium 135 mmol/L (136-145)
[2020-07-13] MEDS ORDERED: Sodium Chloride 0.9% 500 ML IV SCH (05:30)
[2020-07-13] MEDS: Sodium Chloride 0.9% 1,000 ML IV SCH ×2 (05:39→16:04)
[2020-07-13] MEDS ORDERED: Acetaminophen 325 MG TAB PO PRN (05:43)
[2020-07-13] MEDS ORDERED: Dexamethasone 4 mg/ml Vial SLOW IVP SCH (09:00)
[2020-07-13] MEDS: Ascorbic Acid 500 mg Chewable Tablet PO SCH (11:34)
[2020-07-13] MEDS: Zinc Sulfate 220 MG CAP PO SCH (11:35)
[2020-07-13] MEDS: Cholecalciferol (Vitamin D3) 400 UNITS TAB PO SCH (11:35)
[2020-07-13 14:53] VITALS: BMI 58.1
[2020-07-13] MEDS: Albumin 25% 25 GM/100 ML BOT IVPB SCH ×2 (17:02→21:55)
[2020-07-13] MEDS: Lorazepam 2 MG/ML VIAL SLOW IVP PRN (20:50)
[2020-07-14] MEDS: HumaLOG 300 UNITS/3 ML VIAL SC PRN ×6 (00:25→23:49)
[2020-07-14] MEDS: Sodium Chloride 0.9% 1,000 ML IV SCH ×3 (02:34→22:00)
[2020-07-14] MEDS: Lorazepam 2 MG/ML VIAL SLOW IVP PRN ×2 (03:35→09:54)
[2020-07-14] MEDS: Albumin 25% 25 GM/100 ML BOT IVPB SCH ×3 (03:47→17:02)
[2020-07-14 05:19] LABS: Anion Gap 16 mmol/L (10-20); BUN (Urea Nitrogen) 58 mg/dL (9.8-20.1); Calc. Creatinine Clearance 45 mL/min (70-130); Calcium 8.4 mg/dL (7.8-10.44); Carbon Dioxide 30 mmol/L (23-31); Chloride 95 mmol/L (98-107); Glucose 204 mg/dL (83-110); Potassium 3.5 mmol/L (3.5-5.1); Sodium 137 mmol/L (136-145)
[2020-07-14 05:22] LABS: Hemoglobin 9.9 g/dL (12.0-16.0); Lymphocytes 5 % (21-51); MDiff Complete? YES; Mean Corpuscular HGB CONC 33.2 g/dL (32.0-36.0); Mean Corpuscular Hemoglobin 31.2 pg (27.0-31.0); Mean Platelet Volume 8.3 fL (7.4-10.4); Neutrophil 95 % (42-75); Platelet Count 170 thou/uL (130-400); Platelet Morphology Comment Appears Adequate; RBC Distribution Width 13.7 % (11.5-14.5); Red Blood Cell (RBC) Count 3.17 mill/uL (4.20-5.40); White Blood Cell (WBC) Count 5.9 thou/uL (4.8-10.8)
[2020-07-14] MEDS: Propofol 1,000 MG/100 ML VIAL IV PRN ×3 (07:35→17:02)
[2020-07-14] MEDS: Dexamethasone 4 mg/ml Vial SLOW IVP SCH (08:24)
[2020-07-14] MEDS: Vecuronium 10 MG VIAL IV PRN ×2 (08:24→09:54)
[2020-07-14] MEDS: Cholecalciferol (Vitamin D3) 400 UNITS TAB PO SCH (08:25)
[2020-07-14] MEDS: Enoxaparin Sodium 30 MG/0.3 ML SYRINGE SC SCH (08:25)
[2020-07-14] MEDS: Zinc Sulfate 220 MG CAP PO SCH (08:25)
[2020-07-14] MEDS: Ascorbic Acid 500 mg Chewable Tablet PO SCH (08:25)
[2020-07-14] MEDS ORDERED: Fentanyl CADD 100 ML ONE (11:02)
[2020-07-15 04:28] LABS: Hemoglobin 9.5 g/dL (12.0-16.0); Mean Corpuscular HGB CONC 32.2 g/dL (32.0-36.0); Mean Corpuscular Hemoglobin 29.8 pg (27.0-31.0); Mean Corpuscular Volume 92.6 fL (78.0-98.0); Mean Platelet Volume 9.7 fL (7.4-10.4); Platelet Count 134 thou/uL (130-400); RBC Distribution Width 13.6 % (11.5-14.5); Red Blood Cell (RBC) Count 3.19 mill/uL (4.20-5.40)
[2020-07-15 04:42] LABS: Band 24 % (5-11); Hypochromia SLIGHT = 6-15 cells (100X) (0-5/hpf); Lymphocytes 10 % (21-51); MDiff Complete? YES; Metamyelocyte 1 % (0-0); Neutrophil 64 % (42-75); Platelet Morphology Comment Appears Adequate; Reactive Lymphocytes 1 % (0-10)
[2020-07-15 04:45] LABS: Anion Gap 19 mmol/L (10-20); BUN (Urea Nitrogen) 62 mg/dL (9.8-20.1); Calc. Creatinine Clearance 49 mL/min (70-130); Calcium 8.3 mg/dL (7.8-10.44); Carbon Dioxide 24 mmol/L (23-31); Chloride 100 mmol/L (98-107); Glucose 212 mg/dL (83-110); Potassium 3.7 mmol/L (3.5-5.1); Sodium 139 mmol/L (136-145)
[2020-07-15] MEDS: HumaLOG 300 UNITS/3 ML VIAL SC PRN (05:25)
[2020-07-15] MEDS ORDERED: Fentanyl CADD 100 ML ONE (07:10)
[2020-07-15] MEDS: Fentanyl CADD 100 ML IV SCH (07:30)
[2020-07-15] MEDS: Zinc Sulfate 220 MG CAP PO SCH (09:05)
[2020-07-15] MEDS: Propofol 1,000 MG/100 ML VIAL IV PRN ×2 (09:05→18:39)
[2020-07-15] MEDS: Dexamethasone 4 mg/ml Vial SLOW IVP SCH (09:06)
[2020-07-15] MEDS: Enoxaparin Sodium 30 MG/0.3 ML SYRINGE SC SCH (09:06)
[2020-07-15] MEDS: Cholecalciferol (Vitamin D3) 400 UNITS TAB PO SCH (09:06)
[2020-07-15] MEDS: Ascorbic Acid 500 mg Chewable Tablet PO SCH (09:06)
[2020-07-15] MEDS: Sodium Chloride 0.9% 1,000 ML IV SCH ×2 (09:41→20:23)
[2020-07-15] MEDS ORDERED: Morphine 4 MG/ML VIAL SLOW IVP PRN (14:46)
[2020-07-15] MEDS ORDERED: Hyoscyamine Sulfate SL 0.125 mg Tablet SL PRN (14:47)
[2020-07-15] MEDS ORDERED: Lorazepam 2 MG/ML VIAL SLOW IVP PRN (14:47)
[2020-07-15] MEDS ORDERED: Lorazepam 2 MG/ML VIAL SLOW IVP SCH (15:00)
[2020-07-15] MEDS ORDERED: Morphine 4 MG/ML VIAL SLOW IVP SCH (15:00)
[2020-07-16 00:02] VITALS: TEMP 97.5
[2020-07-16] MEDS ORDERED: Fentanyl CADD 100 ML ONE (02:21)
[2020-07-16] MEDS: Fentanyl CADD 100 ML IV SCH (02:22)
[2020-07-16] MEDS: Propofol 1,000 MG/100 ML VIAL IV PRN (03:19)
[2020-07-16 04:45] LABS: Anion Gap 20 mmol/L (10-20); BUN (Urea Nitrogen) 66 mg/dL (9.8-20.1); CRP (Inflammatory) 23.96 mg/dL (= or < 0.5); Calc. Creatinine Clearance 50 mL/min (70-130); Calcium 8.3 mg/dL (7.8-10.44); Carbon Dioxide 22 mmol/L (23-31); Chloride 101 mmol/L (98-107); Glucose 206 mg/dL (83-110); Potassium 3.8 mmol/L (3.5-5.1); Sodium 139 mmol/L (136-145)
[2020-07-16] MEDS: Sodium Chloride 0.9% 1,000 ML IV SCH (05:50)
[2020-07-16 07:55] VITALS: BP 86/56
== END 2020-07-16 09:00 | disposition expired | DRG 871 ==
LOC: ERS 20:50 → CCU 21:58
PROVIDERS: ADMIT Student in an Organized Health Care Education/Training Program; ATTEND Family Medicine
PROC: 05H633Z Insertion of Infusion Device into Left Subclavian Vein, Percutaneous Approach (ICD-10-PCS; principal; 2020-07-12)
PROC: 5A1945Z Respiratory Ventilation, 24-96 Consecutive Hours (ICD-10-PCS; 2020-07-12)
DX: A41.89 Other specified sepsis (principal); U07.1 COVID-19; J12.82 Pneumonia due to coronavirus disease 2019; J96.21 Acute and chronic respiratory failure with hypoxia; J44.0 Chronic obstructive pulmonary disease with (acute) lower respiratory infection; E87.1 Hypo-osmolality and hyponatremia; I13.0 Hypertensive heart and chronic kidney disease with heart failure and stage 1 through stage 4 chronic kidney disease, or unspecified chronic kidney disease; N17.9 Acute kidney failure, unspecified; Z68.45 Body mass index [BMI] 70 or greater, adult; N39.0 Urinary tract infection, site not specified; Z51.5 Encounter for palliative care; I95.9 Hypotension, unspecified; I50.9 Heart failure, unspecified; E11.22 Type 2 diabetes mellitus with diabetic chronic kidney disease; D64.9 Anemia, unspecified; E66.01 Morbid (severe) obesity due to excess calories; N18.9 Chronic kidney disease, unspecified; E03.9 Hypothyroidism, unspecified; I34.0 Nonrheumatic mitral (valve) insufficiency; K21.9 Gastro-esophageal reflux disease without esophagitis; G47.30 Sleep apnea, unspecified; I87.8 Other specified disorders of veins; Z66 Do not resuscitate; Z91.041 Radiographic dye allergy status; Z91.040 Latex allergy status; Z88.0 Allergy status to penicillin; Z91.013 Allergy to seafood; Z88.2 Allergy status to sulfonamides; Z91.018 Allergy to other foods; Z79.4 Long term (current) use of insulin; Z90.710 Acquired absence of both cervix and uterus; Z78.1 Physical restraint status
CPT/HCPCS: 36416; 36556; 36600; 71045; 80048; 81003; 81015; 82728; 82805; 85007; 85027; 85379; 86140; 87040; 87086; 94002; 94003; 96365; 99292; J1100; J1650; J1815; J2060; J2704; J3010; P9047